=== PATIENT | female | born 1980 | race Caucasian/White ===

== ENCOUNTER 2019-02-25 02:03 | Emergency (ER) | payer SELFPAY ==
[~2019-02-25] VITALS: Ht 154.9 cm; Wt 79.5 kg
[~2019-02-25 02:03] MED LIST: CITA20TA28 PO; NAPR-56 PO
[2019-02-25] MEDS ORDERED: ondansetron/PF 4mg/2ml inj IV ONE (02:25)
[2019-02-25] MEDS ORDERED: normal saline 1000ML IV soln IVB ONE ×2 (02:25→03:20)
[2019-02-25 02:47] LABS: BASOPHILS % (AUTO) 0.2 % (0-1); EOSINOPHILS % (AUTO) 0.1 % (0-6); HEMATOCRIT 37.2 % (35.0-45.0); HEMOGLOBIN 12.5 g/dl (12.0-16.0); LYMPHOCYTES # (AUTO) 0.6 X10'3 (1.1-4.8); LYMPHOCYTES % (AUTO) 5.2 % (21-51); MEAN CORPUSCULAR HEMOGLOBIN 27.2 PG (27.0-31.0); MEAN CORPUSCULAR HGB CONC 33.6 g/dL (33.0-36.5); MEAN CORPUSCULAR VOLUME 80.9 FL (78-98); MONOCYTES # (AUTO) 0.6 X10'3 (0-0.9); MONOCYTES % (AUTO) 5.2 % (2-12); NEUTROPHILS # (AUTO) 9.7 X10'3 (1.8-7.7); NEUTROPHILS % (AUTO) 89.3 % (42-75); PLATELET COUNT 313 X10'3 (140-440); RED CELL DISTRIBUTION WIDTH 14.6 % (11.5-14.5); WHITE BLOOD COUNT 10.9 X10'3 (4.5-11.0)
[2019-02-25 03:11] LABS: ALANINE AMINOTRANSFERASE 112 U/L (12-78); ALBUMIN/GLOBULIN RATIO 0.8 (1.1-1.5); ALKALINE PHOSPHATASE 205 IU/L (46-116); ANION GAP 10 (8-16); ASPARTATE AMINO TRANSFERASE 203 U/L (10-37); BILIRUBIN,TOTAL 0.8 MG/DL (0.1-1.0); BLOOD UREA NITROGEN 15 MG/DL (7-18); BUN/CREATININE RATIO 14.9 (6.6-38.0); CALCIUM 8.5 MG/DL (8.5-10.1); CHLORIDE 104 MMOL/L (99-107); CREATININE 1.01 MG/DL (0.40-0.90); GLUCOSE 143 MG/DL (70-104); LIPASE 85 U/L (73-393); POTASSIUM 3.1 MMOL/L (3.5-5.1); SODIUM 137 MMOL/L (135-145); eGFR 62 ML/MIN
[2019-02-25] MEDS ORDERED: ONDA4TAB6 PO (04:37)
[2019-02-25 04:48] VITALS: BP 109/70
== END 2019-02-25 04:52 | disposition home or self-care (01) ==
LOC: ER 02:04
DX: R10.13 Epigastric pain (principal); K21.9 Gastro-esophageal reflux disease without esophagitis; G89.29 Other chronic pain; Z87.442 Personal history of urinary calculi; Z98.890 Other specified postprocedural states; Z98.51 Tubal ligation status; Z88.5 Allergy status to narcotic agent; Z88.6 Allergy status to analgesic agent; Z79.899 Other long term (current) drug therapy
CPT/HCPCS: 36415; 80053; 83690; 85025; 96361; 96374; 99283; J2405; J7030

== ENCOUNTER 2022-07-11 06:13 | Emergency (ER) | payer MEDICAID ==
[~2022-07-11] VITALS: Ht 154.9 cm; Wt 88.2 kg
[~2022-07-11 06:13] MED LIST changes: +ONDA4TAB6 PO
[2022-07-11 06:36] VITALS: BP 147/89
== END 2022-07-11 07:35 | disposition left against medical advice (07) ==
LOC: ER 06:14
DX: M25.519 Pain in unspecified shoulder (principal); Z53.21 Procedure and treatment not carried out due to patient leaving prior to being seen by health care provider

== ENCOUNTER 2022-09-04 13:43 | Emergency (ER) | payer OTHER, MEDICAID ==
[~2022-09-04] VITALS: Ht 157.5 cm; Wt 87.0 kg
[2022-09-04] MEDS ORDERED: HYDROcodone/acetaminophen 5mg/325mg tablet PO ONE (15:55)
[2022-09-04 16:14] LABS: D-DIMER 2.16 MG/L FEU (0-0.50)
[2022-09-04] MEDS ORDERED: normal saline 1000ML IV soln IVB ONE (16:35)
[2022-09-04 16:49] LABS: BASOPHILS # (AUTO) 0.1 X10'3 (0-0.2); BASOPHILS % (AUTO) 0.5 % (0-1); EOSINOPHILS # (AUTO) 0.7 X10'3 (0-0.9); EOSINOPHILS % (AUTO) 5.1 % (0-6); HEMATOCRIT 29.3 % (35.0-45.0); HEMOGLOBIN 9.4 g/dl (12.0-16.0); LYMPHOCYTES # (AUTO) 2.2 X10'3 (1.1-4.8); LYMPHOCYTES % (AUTO) 16.7 % (21-51); MEAN CORPUSCULAR HEMOGLOBIN 24.4 PG (27.0-31.0); MEAN CORPUSCULAR HGB CONC 32.2 g/dL (33.0-36.5); MEAN CORPUSCULAR VOLUME 75.8 FL (78-98); MEAN PLATELET VOLUME 8.2 FL (7.4-10.4); MONOCYTES # (AUTO) 0.6 X10'3 (0-0.9); MONOCYTES % (AUTO) 4.2 % (2-12); NEUTROPHILS # (AUTO) 9.7 X10'3 (1.8-7.7); NEUTROPHILS % (AUTO) 73.5 % (42-75); PLATELET COUNT 509 X10'3 (140-440); RED BLOOD COUNT 3.86 X10'6 (4.20-5.60); RED CELL DISTRIBUTION WIDTH 15.9 % (11.5-14.5); WHITE BLOOD COUNT 13.2 X10'3 (4.5-11.0)
[2022-09-04 17:01] LABS: ALANINE AMINOTRANSFERASE 19 U/L (12-78); ALBUMIN 2.7 G/DL (3.4-5.0); ALBUMIN/GLOBULIN RATIO 0.6 (1.1-1.5); ALKALINE PHOSPHATASE 135 IU/L (46-116); ANION GAP 11 (8-16); ASPARTATE AMINO TRANSFERASE 11 U/L (10-37); BILIRUBIN,TOTAL 0.1 MG/DL (0.1-1.0); BLOOD UREA NITROGEN 18 MG/DL (7-18); BUN/CREATININE RATIO 26.1 (6.6-38.0); CALCIUM 9.1 MG/DL (8.5-10.1); CHLORIDE 104 MMOL/L (99-107); CREATININE 0.69 MG/DL (0.40-0.90); GLUCOSE 117 MG/DL (70-104); POTASSIUM 3.8 MMOL/L (3.5-5.1); SODIUM 139 MMOL/L (135-145); TOTAL CARBON DIOXIDE 24.4 MMOL/L (24-32); eGFR > 90 ML/MIN
[2022-09-04 17:26] LABS: URINE HCG NEGATIVE (NEG)
[2022-09-04] MEDS ORDERED: iohexol 350MG/ML 100ml bottle IV ONE (17:44)
[2022-09-04 17:49] VITALS: BP 121/76
[2022-09-04] MEDS ORDERED: HYDR-3965 PO (18:39)
== END 2022-09-04 19:09 | disposition home or self-care (01) ==
LOC: ER 13:44
DX: M25.511 Pain in right shoulder (principal); M25.512 Pain in left shoulder; J84.10 Pulmonary fibrosis, unspecified; N20.0 Calculus of kidney; Q67.6 Pectus excavatum; K21.9 Gastro-esophageal reflux disease without esophagitis; R06.02 Shortness of breath; G89.29 Other chronic pain; F41.9 Anxiety disorder, unspecified; F32.A Depression, unspecified; Z87.442 Personal history of urinary calculi; Z98.51 Tubal ligation status; Z98.890 Other specified postprocedural states; Z90.89 Acquired absence of other organs; Z88.5 Allergy status to narcotic agent; Z88.8 Allergy status to other drugs, medicaments and biological substances; Z79.899 Other long term (current) drug therapy
CPT/HCPCS: 36415; 71275; 73030; 80053; 81025; 84484; 85025; 85379; 93005; 96360; 99285; J3490; J7030; Q9967

== ENCOUNTER 2023-07-14 13:01 | Emergency (ER) | payer OTHER, MEDICAID ==
[~2023-07-14] VITALS: Ht 154.9 cm; Wt 88.7 kg
[2023-07-14 13:21] LABS: BASOPHILS # (AUTO) 0.1 X10'3 (0-0.2); BASOPHILS % (AUTO) 0.5 % (0-1); EOSINOPHILS # (AUTO) 0.3 X10'3 (0-0.9); EOSINOPHILS % (AUTO) 1.9 % (0-6); HEMATOCRIT 36.7 % (35.0-45.0); LYMPHOCYTES # (AUTO) 1.6 X10'3 (1.1-4.8); LYMPHOCYTES % (AUTO) 11.7 % (21-51); MEAN CORPUSCULAR HGB CONC 32.7 g/dL (33.0-36.5); MEAN CORPUSCULAR VOLUME 79.4 FL (78-98); MEAN PLATELET VOLUME 8.4 FL (7.4-10.4); MONOCYTES # (AUTO) 0.5 X10'3 (0-0.9); MONOCYTES % (AUTO) 3.8 % (2-12); NEUTROPHILS # (AUTO) 11.1 X10'3 (1.8-7.7); NEUTROPHILS % (AUTO) 82.1 % (42-75); PLATELET COUNT 315 X10'3 (140-440); RED BLOOD COUNT 4.62 X10'6 (4.20-5.60); RED CELL DISTRIBUTION WIDTH 15.3 % (11.5-14.5); WHITE BLOOD COUNT 13.5 X10'3 (4.5-11.0)
[2023-07-14 14:45] LABS: ALANINE AMINOTRANSFERASE 36 U/L (12-78); ALBUMIN 3.3 G/DL (3.4-5.0); ALBUMIN/GLOBULIN RATIO 0.9 (1.1-1.5); ALKALINE PHOSPHATASE 141 IU/L (46-116); ANION GAP 6 (8-16); ASPARTATE AMINO TRANSFERASE 61 U/L (10-37); BILIRUBIN,TOTAL 0.4 MG/DL (0.1-1.0); BLOOD UREA NITROGEN 12 MG/DL (7-18); BUN/CREATININE RATIO 14.8 (10.0-20.0); CALCIUM 8.9 MG/DL (8.5-10.1); CHLORIDE 101 MMOL/L (99-107); CREATININE 0.81 MG/DL (0.40-0.90); GLUCOSE 169 MG/DL (70-104); POTASSIUM 4.1 MMOL/L (3.5-5.1); SODIUM 133 MMOL/L (135-145); TOTAL CARBON DIOXIDE 25.8 MMOL/L (24-32); eCRCL 68 ML/MIN; eGFR 78 ML/MIN
[2023-07-14 14:52] LABS: PRO BRAIN NATRIURETIC PEPTIDE < 30 PG/ML (0-125)
[2023-07-14 16:02] VITALS: TEMP 98.4
[2023-07-14] MEDS ORDERED: OMEP40CA21 PO (16:28)
[2023-07-14] MEDS ORDERED: mag hydrox/Alum hydrox/simeth 30ml oral suspension PO ONE (16:35)
[2023-07-14] MEDS ORDERED: LIDOcaine Viscous 15ml cup MM PRN (16:35)
[2023-07-14 16:58] VITALS: BP 144/90; PULSE 91; RESP 17; O2SAT 98
== END 2023-07-14 17:06 | disposition home or self-care (01) ==
LOC: ER 13:01
DX: R07.9 Chest pain, unspecified (principal); K21.9 Gastro-esophageal reflux disease without esophagitis; G89.29 Other chronic pain; M54.9 Dorsalgia, unspecified; F31.9 Bipolar disorder, unspecified; Z98.890 Other specified postprocedural states
CPT/HCPCS: 36415; 71045; 80053; 83880; 84484; 85025; 93005; 99285

== ENCOUNTER 2023-11-13 12:32 | Emergency (ER) | payer OTHER, MEDICAID ==
[~2023-11-13] VITALS: Ht 154.9 cm; Wt 88.2 kg
[2023-11-13 12:38] VITALS: BP 147/98; PULSE 87; RESP 18; TEMP 97.5; O2SAT 96
[2023-11-13 13:10] LABS: BASOPHILS # (AUTO) 0.1 X10'3 (0-0.2); BASOPHILS % (AUTO) 0.6 % (0-1); EOSINOPHILS # (AUTO) 0.2 X10'3 (0-0.9); EOSINOPHILS % (AUTO) 1.5 % (0-6); HEMATOCRIT 37.9 % (35.0-45.0); HEMOGLOBIN 12.6 g/dl (12.0-16.0); LYMPHOCYTES # (AUTO) 2.1 X10'3 (1.1-4.8); LYMPHOCYTES % (AUTO) 20.6 % (21-51); MEAN CORPUSCULAR HEMOGLOBIN 26.3 PG (27.0-31.0); MEAN CORPUSCULAR HGB CONC 33.2 g/dL (33.0-36.5); MEAN CORPUSCULAR VOLUME 79.1 FL (78-98); MEAN PLATELET VOLUME 9.1 FL (7.4-10.4); MONOCYTES # (AUTO) 0.5 X10'3 (0-0.9); MONOCYTES % (AUTO) 4.3 % (2-12); NEUTROPHILS # (AUTO) 7.6 X10'3 (1.8-7.7); PLATELET COUNT 374 X10'3 (140-440); RED BLOOD COUNT 4.79 X10'6 (4.20-5.60); RED CELL DISTRIBUTION WIDTH 14.8 % (11.5-14.5); WHITE BLOOD COUNT 10.4 X10'3 (4.5-11.0)
[2023-11-13 13:33] LABS: ALANINE AMINOTRANSFERASE 18 U/L (12-78); ALBUMIN 3.5 G/DL (3.4-5.0); ALBUMIN/GLOBULIN RATIO 0.9 (1.1-1.5); ALKALINE PHOSPHATASE 122 IU/L (46-116); ANION GAP 11 (8-16); ASPARTATE AMINO TRANSFERASE 11 U/L (10-37); BILIRUBIN,TOTAL 0.4 MG/DL (0.1-1.0); BLOOD UREA NITROGEN 9 MG/DL (7-18); BUN/CREATININE RATIO 12.3 (10.0-20.0); CALCIUM 8.7 MG/DL (8.5-10.1); CHLORIDE 105 MMOL/L (99-107); CREATININE 0.73 MG/DL (0.40-0.90); GLUCOSE 95 MG/DL (70-104); POTASSIUM 3.8 MMOL/L (3.5-5.1); PRO BRAIN NATRIURETIC PEPTIDE 83 PG/ML (0-125); SODIUM 141 MMOL/L (135-145); TOTAL CARBON DIOXIDE 25.1 MMOL/L (24-32); TOTAL PROTEIN 7.4 G/DL (6.4-8.2); eCRCL 76 ML/MIN; eGFR 87 ML/MIN
== END 2023-11-13 15:14 | disposition left against medical advice (07) ==
LOC: ER 12:33
DX: R07.9 Chest pain, unspecified (principal); R53.1 Weakness; G89.29 Other chronic pain; M54.9 Dorsalgia, unspecified; F31.9 Bipolar disorder, unspecified; Z88.6 Allergy status to analgesic agent; Z79.899 Other long term (current) drug therapy
CPT/HCPCS: 36415; 80053; 83880; 84484; 85025; 93005; 99284

== ENCOUNTER 2024-07-18 11:59 | Emergency (ER) | payer OTHER, MEDICAID ==
[~2024-07-18] VITALS: Ht 154.9 cm; Wt 87.3 kg
[2024-07-18 12:38] LABS: URINE HCG NEGATIVE (NEG)
[2024-07-18 12:50] LABS: BILIRUBIN,URINE NEGATIVE (Neg); CLARITY,URINE SLIGHTLY CLOUDY (Clear); COLOR,URINE YELLOW (Yellow); GLUCOSE, URINE NEGATIVE (Neg); KETONES,URINE NEGATIVE (Neg); LEUKOCYTE ESTERASE ,URINE NEGATIVE (Neg); NITRITES, URINE NEGATIVE (Neg); OCCULT BLOOD,URINE NEGATIVE (Neg); PROTEIN,URINE NEGATIVE (Neg); UROBILINOGEN,URINE 0.2 E.U/dL (0.2-1.0)
[2024-07-18 12:50] LABS: BASOPHILS # (AUTO) 0.1 X10'3 (0-0.2); BASOPHILS % (AUTO) 0.7 % (0-1); EOSINOPHILS # (AUTO) 0.2 X10'3 (0-0.9); EOSINOPHILS % (AUTO) 2.7 % (0-6); HEMATOCRIT 40.7 % (35.0-45.0); HEMOGLOBIN 13.4 g/dl (12.0-16.0); LYMPHOCYTES % (AUTO) 27.1 % (21-51); MEAN CORPUSCULAR HEMOGLOBIN 26.9 PG (27.0-31.0); MEAN CORPUSCULAR HGB CONC 32.9 g/dL (33.0-36.5); MEAN CORPUSCULAR VOLUME 81.8 FL (78-98); MEAN PLATELET VOLUME 8.4 FL (7.4-10.4); MONOCYTES # (AUTO) 0.4 X10'3 (0-0.9); MONOCYTES % (AUTO) 6.2 % (2-12); NEUTROPHILS # (AUTO) 4.6 X10'3 (1.8-7.7); NEUTROPHILS % (AUTO) 63.3 % (42-75); PLATELET COUNT 377 X10'3 (140-440); RED BLOOD COUNT 4.97 X10'6 (4.20-5.60); RED CELL DISTRIBUTION WIDTH 14.3 % (11.5-14.5); WHITE BLOOD COUNT 7.2 X10'3 (4.5-11.0)
[2024-07-18 12:55] LABS: UA COLLECTION TYPE CLN CATCH MIDSTREAM
[2024-07-18 12:57] LABS: MUCUS STRANDS FEW /LPF (Neg); SQUAMOUS EPITHELIAL CELL,UR MANY /LPF (FEW)
[2024-07-18 12:58] LABS: BACTERIA,URINE 2+ /HPF (Neg); WBC,URINE 0-4 /HPF (0-4)
[2024-07-18 13:12] VITALS: BP 157/99; PULSE 82; O2SAT 99
[2024-07-18 13:15] LABS: ALANINE AMINOTRANSFERASE 31 U/L (12-78); ALBUMIN 3.3 G/DL (3.4-5.0); ALBUMIN/GLOBULIN RATIO 0.9 (1.1-1.5); ALKALINE PHOSPHATASE 133 IU/L (46-116); ANION GAP 5 (8-16); ASPARTATE AMINO TRANSFERASE 15 U/L (10-37); BILIRUBIN,TOTAL 0.4 MG/DL (0.1-1.0); BLOOD UREA NITROGEN 11 MG/DL (7-18); BUN/CREATININE RATIO 15.9 (10.0-20.0); CALCIUM 8.6 MG/DL (8.5-10.1); CHLORIDE 104 MMOL/L (99-107); CREATININE 0.69 MG/DL (0.40-0.90); GLUCOSE 104 MG/DL (70-104); LIPASE 34 U/L (16-77); POTASSIUM 3.7 MMOL/L (3.5-5.1); SODIUM 136 MMOL/L (135-145); TOTAL CARBON DIOXIDE 27.5 MMOL/L (24-32); TOTAL PROTEIN 7.1 G/DL (6.4-8.2); eCRCL 79 ML/MIN; eGFR > 90 ML/MIN
[2024-07-18] MEDS ORDERED: pantoprazole 40 MG vial IV SCH (13:30)
[2024-07-18] MEDS: normal saline 1000ML IV soln IVB ONE (13:54)
[2024-07-18] MEDS: LIDOcaine 2% Viscous 15ml cup MM PRN (13:54)
[2024-07-18] MEDS: mag hydrox/Alum hydrox/simeth 30ml oral suspension PO ONE (13:58)
[2024-07-18] MEDS: pantoprazole 40 MG vial IV ONE (13:59)
[2024-07-18 14:23] VITALS: RESP 15
[2024-07-18 14:49] VITALS: TEMP 98.2
== END 2024-07-18 14:51 | disposition home or self-care (01) ==
LOC: ER 11:59
DX: R10.84 Generalized abdominal pain (principal); K21.9 Gastro-esophageal reflux disease without esophagitis; G89.29 Other chronic pain; M54.9 Dorsalgia, unspecified; Z88.8 Allergy status to other drugs, medicaments and biological substances; Z98.51 Tubal ligation status; Z98.890 Other specified postprocedural states; Z87.442 Personal history of urinary calculi; Z79.899 Other long term (current) drug therapy
CPT/HCPCS: 36415; 80053; 81001; 81025; 83690; 85025; 96365; 99284; J2470; J7030

== ENCOUNTER 2025-01-03 21:05 | Emergency (ER) | payer OTHER, MEDICAID ==
[~2025-01-03] VITALS: Ht 154.9 cm; Wt 85.9 kg
[~2025-01-03 21:05] MED LIST changes: +CITA-178 PO; -CITA20TA28 PO
[2025-01-03 21:40] LABS: BASOPHILS # (AUTO) 0.1 X10'3 (0-0.2); BASOPHILS % (AUTO) 0.7 % (0-1); EOSINOPHILS # (AUTO) 0.6 X10'3 (0-0.9); EOSINOPHILS % (AUTO) 5.4 % (0-6); HEMATOCRIT 41.9 % (35.0-45.0); HEMOGLOBIN 14.1 g/dl (12.0-16.0); LYMPHOCYTES # (AUTO) 2.1 X10'3 (1.1-4.8); LYMPHOCYTES % (AUTO) 18.3 % (21-51); MEAN CORPUSCULAR HEMOGLOBIN 27.7 PG (27.0-31.0); MEAN CORPUSCULAR HGB CONC 33.6 g/dL (33.0-36.5); MEAN CORPUSCULAR VOLUME 82.4 FL (78-98); MEAN PLATELET VOLUME 9.1 FL (7.4-10.4); MONOCYTES # (AUTO) 0.5 X10'3 (0-0.9); MONOCYTES % (AUTO) 4.2 % (2-12); NEUTROPHILS # (AUTO) 8.3 X10'3 (1.8-7.7); NEUTROPHILS % (AUTO) 71.4 % (42-75); PLATELET COUNT 386 X10'3 (140-440); RED BLOOD COUNT 5.09 X10'6 (4.20-5.60); RED CELL DISTRIBUTION WIDTH 14.6 % (11.5-14.5); WHITE BLOOD COUNT 11.7 X10'3 (4.5-11.0)
[2025-01-03 21:47] LABS: ALANINE AMINOTRANSFERASE 21 U/L (12-78); ALBUMIN 3.5 G/DL (3.4-5.0); ALBUMIN/GLOBULIN RATIO 0.9 (1.1-1.5); ALKALINE PHOSPHATASE 123 IU/L (46-116); ANION GAP 7 (8-16); ASPARTATE AMINO TRANSFERASE 13 U/L (10-37); BILIRUBIN,TOTAL 0.4 MG/DL (0.1-1.0); BLOOD UREA NITROGEN 12 MG/DL (7-18); BUN/CREATININE RATIO 15.2 (10.0-20.0); CALCIUM 8.6 MG/DL (8.5-10.1); CHLORIDE 105 MMOL/L (99-107); CREATININE 0.79 MG/DL (0.40-0.90); GLUCOSE 104 MG/DL (70-104); LIPASE 29 U/L (16-77); POTASSIUM 3.4 MMOL/L (3.5-5.1); SODIUM 137 MMOL/L (135-145); TOTAL CARBON DIOXIDE 24.7 MMOL/L (24-32); TOTAL PROTEIN 7.3 G/DL (6.4-8.2); eCRCL 69 ML/MIN; eGFR 79 ML/MIN
[2025-01-03 21:54] VITALS: BP 159/96; PULSE 97; RESP 18; TEMP 97.5; O2SAT 96
[2025-01-03 22:19] LABS: BILIRUBIN,URINE NEGATIVE (Neg); CLARITY,URINE CLEAR (Clear); COLOR,URINE YELLOW (Yellow); GLUCOSE, URINE NEGATIVE (Neg); KETONES,URINE TRACE mg/dl (Neg); LEUKOCYTE ESTERASE ,URINE NEGATIVE (Neg); NITRITES, URINE NEGATIVE (Neg); OCCULT BLOOD,URINE NEGATIVE (Neg); PROTEIN,URINE NEGATIVE (Neg); UROBILINOGEN,URINE 0.2 E.U/dL (0.2-1.0)
[2025-01-03 22:20] LABS: URINE HCG NEGATIVE (NEG)
[2025-01-03 22:52] LABS: UA COLLECTION TYPE CLN CATCH MIDSTREAM
== END 2025-01-04 00:55 | disposition left against medical advice (07) ==
LOC: ER 21:05
DX: R10.84 Generalized abdominal pain (principal); R19.7 Diarrhea, unspecified; Z53.21 Procedure and treatment not carried out due to patient leaving prior to being seen by health care provider; Z88.6 Allergy status to analgesic agent
CPT/HCPCS: 36415; 80053; 81003; 81025; 83690; 85025

== ENCOUNTER 2025-02-20 21:44 | Emergency (ER) | payer OTHER, MEDICAID ==
[~2025-02-20] VITALS: Ht 154.9 cm; Wt 81.3 kg
[2025-02-20 22:04] VITALS: BP 156/107; PULSE 119; O2SAT 98
[2025-02-20 23:22] LABS: BASOPHILS # (AUTO) 0.1 X10'3 (0-0.2); BASOPHILS % (AUTO) 0.6 % (0-1); EOSINOPHILS # (AUTO) 0.2 X10'3 (0-0.9); HEMATOCRIT 42.3 % (35.0-45.0); HEMOGLOBIN 13.9 g/dl (12.0-16.0); LYMPHOCYTES # (AUTO) 1.4 X10'3 (1.1-4.8); LYMPHOCYTES % (AUTO) 11.8 % (21-51); MEAN CORPUSCULAR HEMOGLOBIN 27.1 PG (27.0-31.0); MEAN CORPUSCULAR VOLUME 82.1 FL (78-98); MEAN PLATELET VOLUME 9.1 FL (7.4-10.4); MONOCYTES # (AUTO) 0.5 X10'3 (0-0.9); MONOCYTES % (AUTO) 3.8 % (2-12); NEUTROPHILS # (AUTO) 9.7 X10'3 (1.8-7.7); NEUTROPHILS % (AUTO) 81.8 % (42-75); PLATELET COUNT 308 X10'3 (140-440); RED BLOOD COUNT 5.15 X10'6 (4.20-5.60); RED CELL DISTRIBUTION WIDTH 13.8 % (11.5-14.5); WHITE BLOOD COUNT 11.9 X10'3 (4.5-11.0)
[2025-02-20 23:36] LABS: ALANINE AMINOTRANSFERASE 62 U/L (12-78); ALBUMIN 3.6 G/DL (3.4-5.0); ALBUMIN/GLOBULIN RATIO 0.9 (1.1-1.5); ALKALINE PHOSPHATASE 153 IU/L (46-116); ANION GAP 10 (8-16); ASPARTATE AMINO TRANSFERASE 100 U/L (10-37); BILIRUBIN,TOTAL 0.6 MG/DL (0.1-1.0); BLOOD UREA NITROGEN 10 MG/DL (7-18); BUN/CREATININE RATIO 10.9 (10.0-20.0); CALCIUM 8.8 MG/DL (8.5-10.1); CHLORIDE 106 MMOL/L (99-107); CREATININE 0.92 MG/DL (0.40-0.90); GLUCOSE 99 MG/DL (70-104); LIPASE 33 U/L (16-77); POTASSIUM 3.8 MMOL/L (3.5-5.1); SODIUM 142 MMOL/L (135-145); TOTAL CARBON DIOXIDE 26.3 MMOL/L (24-32); TOTAL PROTEIN 7.4 G/DL (6.4-8.2); eCRCL 60 ML/MIN; eGFR 67 ML/MIN
[2025-02-20 23:45] LABS: URINE HCG NEGATIVE (NEG)
[2025-02-20 23:46] LABS: BILIRUBIN,URINE NEGATIVE (Neg); CLARITY,URINE CLEAR (Clear); COLOR,URINE YELLOW (Yellow); GLUCOSE, URINE NEGATIVE (Neg); KETONES,URINE 40 mg/dl (Neg); LEUKOCYTE ESTERASE ,URINE NEGATIVE (Neg); NITRITES, URINE NEGATIVE (Neg); OCCULT BLOOD,URINE NEGATIVE (Neg); PH,URINE 7.5 (4.8-8.0); PROTEIN,URINE TRACE mg/dl (Neg); UROBILINOGEN,URINE 0.2 E.U/dL (0.2-1.0)
[2025-02-20 23:47] LABS: UA COLLECTION TYPE CLN CATCH MIDSTREAM
[2025-02-20 23:50] VITALS: RESP 18
[2025-02-20] MEDS: ondansetron 4mg rapidly disintigrating tab PO ONE (23:50)
[2025-02-20] MEDS: HYDROcodone/acetaminophen 5mg/325mg tablet PO ONE (23:50)
--- NOTE | 2025-02-20 23:50 | Physician Documentation ---
History of Present Illness ~ Chief Complaint: Abdominal Pain Stated Complaint: PINCHED FEELING IN CHEST/BACK Time Seen by MD: 23:06 Primary Medical Doctor: [facility] HPI Patient presents to the emergency room for evaluation of abdominal pain. Patient has had history of abdominal pain and she has had prior cholecystectomy for investigation into this however it has not helped. She does report that symptoms were once relieved by GI cocktail was however that has stopped working. She does take omeprazole daily. She states this feels similar to previous attacks however this one is more severe. Symptoms began approximately 11 hours ago Medication Reconciliation Allergies: Coded Allergies: aspirin (Unverified Adverse Reaction, Unknown, 02/20/25) HX LANDON SYNDROME PER PT, HAS TAKEN IT WITHOUT PROBLEMS Scheduled Citalopram Hydrobromide* (Celexa*), 20 MG PO DAILY, (Reported) Naproxen (Naproxen), 500 MG PO Q12H Ondansetron Hcl (Zofran), 1 TAB PO Q8H Past Medical History Past Medical History: GERD, Kidney Stones, Chronic Back Pain, Anxiety, Depression Past Surgical History: , tonsillectomy, tubal ligation Alcohol Use: None Drug Use: none Lives with: Spouse Lives In: Home Occupation: employed Review of Systems ROS All review of systems negative except as per HPI Physical Exam Vital Signs: Temperature: 97.0, Source: Temporal, Heart Rate: 119, Respiratory Rate: 24, BP: 156/107, Pulse Oximetry: 98, Weight: 81.350 Oxygen Flow Rate: 0 Physical Exam General: Patient is awake, alert, oriented x4 in moderate distress Head: Normocephalic and atraumatic. Eyes: Conjunctival normal. EOMI. PERRL. ENT: Mucous membranes moist. Neck: Supple, trachea is midline. Chest: Clear to auscultation bilaterally without rales, rhonchi, or wheezes. There is no accessory muscle use or retractions. Cardiac: Tachycardic and regular without murmurs, gallops, or rubs. Abd: Soft, nondistended, significant tenderness to palpation to epigastric area . Progress Results/Orders Results/Orders Completed Orders - EH REYNOSO MD Hcg, Ur Ql (02/20/25 22:19) Cbc/Diff (02/20/25 22:19) BMP (02/20/25 22:19) Lipase (02/20/25 22:19) CMP (02/20/25 22:19) Hydrocodone/Apap 5/325mg Tab ([place] 5/32 (02/20/25 23:25) Ondansetron Disint. Tablet (Zofran Odt T (02/20/25 23:25) Ua W/Microscopic, Cult If Ind (02/20/25 23:25) Ketorolac Trometh 15mg/Ml Vial (Toradol (02/20/25 23:50) Mag & Alum Hydrox/Simeth Susp (Maalox Or (02/20/25 23:50) Lidocaine 2% Viscous (Xylocaine 2% Visco (02/20/25 23:50) Dicyclomine Inj (Bentyl Inj) (02/20/25 23:50) Medications Received in ER Medications (Trade) Dose Ordered Sig/Darrius Route PRN Reason Start Time Stop Time Status Last Admin Dose Admin ([place] 5/325mg tablet) 1 tab ONCE ONCE PO 02/20/25 23:25 02/20/25 23:26 DC 02/20/25 23:50 1 TAB (Zofran ODT tablet) 4 mg ONCE ONCE PO 02/20/25 23:25 02/20/25 23:26 DC 02/20/25 23:50 4 MG (Toradol injection) 30 mg ONCE ONCE IM 02/20/25 23:50 02/20/25 23:51 DC 02/20/25 23:55 30 MG (Maalox oral suspension) 30 ml ONCE ONCE PO 02/20/25 23:50 02/20/25 23:51 DC 02/20/25 23:55 30 ML (Xylocaine 2% Viscous 15mL cup) 15 ml ONCE ONCE MM 02/20/25 23:50 02/20/25 23:51 DC 02/20/25 23:55 15 ML (Bentyl inj) 20 mg ONCE ONCE IM 02/20/25 23:50 02/20/25 23:51 DC 02/20/25 23:55 20 MG Vital Signs 02/20/25 02/20/25 22:04 23:50 Temp 97.0 Pulse 119 Resp 24 18 B/P (MAP) 156/107 Pulse Ox 98 O2 Flow Rate 0 Laboratory Tests Test 02/20/25 23:17 02/20/25 23:25 White Blood Count 11.9 H Red Blood Count 5.15 Hemoglobin 13.9 Hematocrit 42.3 Mean Corpuscular Volume 82.1 Mean Corpuscular Hemoglobin 27.1 Mean Corpuscular Hemoglobin Concent 33.0 Red Cell Distribution Width 13.8 Platelet Count 308 Mean Platelet Volume 9.1 Neutrophils (%) (Auto) 81.8 H Lymphocytes (%) (Auto) 11.8 L Monocytes (%) (Auto) 3.8 Eosinophils (%) (Auto) 2.0 Basophils (%) (Auto) 0.6 Neutrophils # (Auto) 9.7 H Lymphocytes # (Auto) 1.4 Monocytes # (Auto) 0.5 Eosinophils # (Auto) 0.2 Basophils # (Auto) 0.1 CBC Comment Sodium Level 142 Potassium Level 3.8 Chloride Level 106 Carbon Dioxide Level 26.3 Anion Gap 10 Blood Urea Nitrogen 10 Creatinine 0.92 H Estimated GFR/1.73 m2 67 BUN/Creatinine Ratio 10.9 Glucose Level 99 Calcium Level 8.8 Total Bilirubin 0.6 Aspartate Amino Transf (AST/SGOT) 100 H Alanine Aminotransferase (ALT/SGPT) 62 Alkaline Phosphatase 153 H Total Protein 7.4 Albumin 3.6 Globulin 3.8 Albumin/Globulin Ratio 0.9 L Lipase 33 Chemistry Comments Urine Specimen Description Cln catch midstream Urine Color Yellow Urine Clarity Clear Urine pH 7.5 Urine Specific [place] 1.020 Urine Protein Trace Urine Glucose (UA) Negative Urine Ketones 40 H Urine Occult Blood Negative Urine Nitrite Negative Urine Bilirubin Negative Urine Urobilinogen 0.2 Urine Leukocyte Esterase Negative Urine RBC 0-2 Urine WBC 0-4 Urine Squamous Epithelial Cells Moderate Urine Bacteria None seen Urine Culture Indicated Not ind Volume Urine Centrifuged 10 ml Urine HCG, Qualitative Negative Urine Comment Medical Decision Making Findings Patient presents to the emergency room for evaluation of abdominal pain. Diffe rentials include but are not limited to pancreatitis diverticulitis small-bowel obstruction gastritis cholecystitis therefore emergent labs ordered which were reassuring. Patient has responded to conservative management I do not feel she requires a CT scan. Unknown cause for patient's pain although it seems she did respond to GI cocktail and give her a course of Pepcid. ER precautions discussed pain completely resolved Departure Disposition: HOME / SELF CARE / HOMELESS Impression: Primary Impression: Abdominal pain Condition: Improved Discharge Instructions: Abdominal Pain (Nonspecific) Referrals: NO PRIMARY CARE PROVIDER (PCP) Prescriptions Famotidine (Pepcid) 20 Mg Tablet 1 TAB PO Q12H, #10 TAB 0 Refills Prov: EH REYNOSO MD 02/21/25 Education Educated: Patient Educated regarding: treatment, need for follow up Signature Scribe Signature: No scribe Attestation: The note accurately reflects work and decisions made by me.Eh Reynoso MD 02/21/25 00:41 EH REYNOSO MD Feb 20, 2025 23:50
[2025-02-20 23:51] LABS: RBC,URINE 0-2 /HPF (0-2); WBC,URINE 0-4 /HPF (0-4)
[2025-02-20 23:52] LABS: BACTERIA,URINE NONE SEEN /HPF (Neg); SQUAMOUS EPITHELIAL CELL,UR MODERATE /LPF (FEW)
[2025-02-20] MEDS: dicyclomine 10mg/ml 2ml ampule IM ONE (23:55)
[2025-02-20] MEDS: mag hydrox/Alum hydrox/simeth 30ml oral suspension PO ONE (23:55)
[2025-02-20] MEDS: LIDOcaine 2% Viscous 15ml cup MM ONE (23:55)
[2025-02-20] MEDS: ketorolac trometh 15mg/ml vial 15 MG/ML ML IM ONE (23:55)
[2025-02-21] MEDS ORDERED: FAMO-129 PO (00:40)
[2025-02-21 00:52] VITALS: TEMP 97
[2025-02-22] MEDS ORDERED: OMEP40CA21 PO (17:33)
[2025-02-22] MEDS ORDERED: DULO60CA65 PO (17:33)
[2025-02-22] MEDS ORDERED: TIRZ2.5P3 SUBCUT (17:33)
== END 2025-02-21 00:53 | disposition home or self-care (01) ==
LOC: ER 21:44
DX: R10.9 Unspecified abdominal pain (principal); F41.9 Anxiety disorder, unspecified; F32.A Depression, unspecified; Z88.6 Allergy status to analgesic agent; Z79.899 Other long term (current) drug therapy; Z90.49 Acquired absence of other specified parts of digestive tract; Z90.89 Acquired absence of other organs; Z98.51 Tubal ligation status
CPT/HCPCS: 36415; 80053; 81001; 81025; 83690; 85025; 96372; 99284; J0500; J1885

== ENCOUNTER 2025-02-22 10:22 | Inpatient (IN) | payer MEDICAID ==
[~2025-02-22] VITALS: Ht 154.9 cm; Wt 80.1 kg
[~2025-02-22 10:22] MED LIST changes: +FAMO-129 PO
--- NOTE | 2025-02-22 10:33 | ELECTROCARDIOGRAPH REPORT ---
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 Daysi Floyd Measurements Intervals [place] Rate: 132 P: 61 ID: [id number] QRS: 76 QRSD: 80 T: -44 QT: 312 QTc: 463 Interpretive Statements Sinus tachycardia Multiform ventricular premature complexes Aberrant complex LAE, consider biatrial enlargement Nonspecific repol abnormality, diffuse leads Electronically Signed On 02-22-2025 11:30:[address] Daysi Floyd Please click the below link to view image of tracing.
--- NOTE | 2025-02-22 12:36 | Physician Documentation ---
History of Present Illness ~ Chief Complaint: Numbness Stated Complaint: TONGUE NUMBNESS Time Seen by MD: 12:35 OK to notify your PCP?: Yes Primary Medical Doctor: Roque arambula Source: patient Mode of Arrival: Ambulatory Exam Limitations: no limitations HPI 44-year-old female with past medical history of hyperlipidemia, hypertension, peripheral neuropathy, esophageal hernia, peptic ulcer disease fibromyalgia, nephrolithiasis, sinus tachycardia presented to the ED with chief complaint of a tingling sensation of lips and tongue for 45 minute duration at 10 a.m today while [place] park on when she suddenly felt weak and dizzy on felt a tingling sensation. She is feeling exhausted & felt short of breath like as if she is running in a marathon. She do reports occasional skipped beats& palpitations. reports could not able to sleep in the last night. She endorses recent increase in dose of zep bound(2.5 mg to 5 mg a day). She reports generalized weakness of bilateral legs & she attributes weakness to her peripheral neuropathy . She denied chest pain, shortness of breath, swelling of legs, fever, diaphoresis, deviation of angle of mouth, slurring of speech, loss of consciousness, seizures, syncope, blurring of vision, vertigo, tinnitus. She tried to do stress test eight months Back with Dr. Barraza & procedure was abanded in the middle because patient heart rate went up to 168 from 120s & she could not able to complete the stress test. Medication Reconciliation Allergies: Coded Allergies: aspirin (Unverified Adverse Reaction, Unknown, 02/20/25) HX LANDON SYNDROME PER PT, HAS TAKEN IT WITHOUT PROBLEMS Scheduled Aspirin (Aspirin), 1 TAB PO DAILY Duloxetine HCl (Duloxetine HCl), 1 CAP PO QAM, (Reported) Famotidine (Pepcid), 1 TAB PO Q12H Omeprazole (Prilosec), 1 CAP PO DAILY, (Reported) Ondansetron Hcl (Zofran), 1 TAB PO Q8H Discontinued Medications Citalopram Hydrobromide* (Celexa*), 20 MG PO DAILY, (Reported) Discontinued Reason: completed med therapy Naproxen (Naproxen), 500 MG PO Q12H Discontinued Reason: patient no longer taking Tirzepatide (Zepbound), 2.5 MG SUBCUT Q7D, (Reported) Past Medical History Past Medical History: Peripheral Neuropathy, Arrhythmia, GERD, Peptic Ulcer Disease, Kidney Stones, Chronic Back Pain, Anxiety, Depression Other Past Medical History: Sinus tachycardia Esophageal hernia Fibromyalgia Past Surgical History: , tonsillectomy, tubal ligation Smoking Status: Never smoker Alcohol Use: None Drug Use: none Lives with: Spouse Lives In: Home Occupation: employed Review of Systems All Other Systems at this time: Reviewed and Negative ROS Reviewed and full on negative except positive pertinent as in HPI Physical Exam Vital Signs: RN Vital Signs have been reviewed: Yes, Temperature: 98.7, Source: Oral, Heart Rate: 96, Respiratory Rate: 22, BP: 154/105, Pulse Oximetry: 96, Weight: 80.100 Oxygen Flow Rate: 0 General Appearance General: Patient is awake, alert, oriented x4 . Not in distress. No JVD. No carotid upstroke. Head: Normocephalic and atraumatic. Eyes: Conjunctival normal. EOMI. PERRL. ENT: Mucous membranes moist. Neck: Supple, trachea is midline. Chest: Clear to auscultation bilaterally without rales, rhonchi, or wheezes. There is no accessory muscle use or retractions. Cardiac: Tachycardic and regular without murmurs, gallops, or rubs. Abd: Soft, nondistended, no tenderness. No guarding, no rigidity Neurological system: Tone is normal. 5/5 in bilateral upper limbs. 5/5 in bilateral leg flexion & 4- out of five in bilateral leg extension. Reflexes are intact. Decreased sensory sensation in the bilateral leg. t-PA t-PA given w/in 2hrs?: No Reason t-PA not Given: Medical Contraindication Progress Results/Orders Reviewed/noted all lab results: Yes Results/Orders Orders - NINO CRUMP MD Electrocardiogram (02/22/25 10:28) Completed Orders - NINO CRUMP MD Electrocardiogram (02/22/25 10:28) [place] (02/22/25 15:00) Vital Signs 02/22/25 02/22/25 02/22/25 02/22/25 10: 11:42 11:47 13:40 Temp 98.7 98.7 Pulse 127 96 87 Resp 16 19 22 16 B/P (MAP) 156/105 154/105 (121) 161/96 (117) Pulse Ox 96 96 98 O2 Flow Rate 0 0 0 02/22/25 14:15 Temp 98.7 Pulse 80 Resp 16 B/P (MAP) 138/85 (102) Pulse Ox 98 O2 Flow Rate 0 Laboratory Tests Test 02/22/25 10:35 02/22/25 12:00 02/22/25 15:10 White Blood Count 11.6 H Red Blood Count 5.23 Hemoglobin 14.8 Hematocrit 43.6 Mean Corpuscular Volume 83.4 Mean Corpuscular Hemoglobin 28.3 Mean Corpuscular Hemoglobin Concent 33.9 Red Cell Distribution Width 14.0 Platelet Count 356 Mean Platelet Volume 10.1 Neutrophils (%) (Auto) 74.2 Lymphocytes (%) (Auto) 16.0 L Monocytes (%) (Auto) 3.4 Eosinophils (%) (Auto) 6.3 H Basophils (%) (Auto) 0.1 Neutrophils # (Auto) 8.6 H Lymphocytes # (Auto) 1.9 Monocytes # (Auto) 0.4 Eosinophils # (Auto) 0.7 Basophils # (Auto) 0.0 CBC Comment Sodium Level 142 Potassium Level 4.0 Chloride Level 105 Carbon Dioxide Level 24.0 Anion Gap 13 Blood Urea Nitrogen 14 Creatinine 0.98 H Estimated GFR/1.73 m2 62 BUN/Creatinine Ratio 14.3 Glucose Level 102 Hemoglobin A1c 5.2 Calcium Level 8.9 Magnesium Level 2.3 Total Bilirubin 0.8 Aspartate Amino Transf (AST/SGOT) 181 H Alanine Aminotransferase (ALT/SGPT) 333 H Alkaline Phosphatase 267 H Total Creatine Kinase 84 Total Protein 7.7 Albumin 3.8 Globulin 3.9 Albumin/Globulin Ratio 1.0 L Procalcitonin 0.13 Thyroid Stimulating Hormone (TSH) 1.92 Chemistry Comments Urine Specimen Description Non-specified Urine Color Yellow Urine Clarity Slightly cloudy Urine pH 6.0 Urine Specific [place] 1.025 Urine Protein Trace Urine Glucose (UA) Negative Urine Ketones 40 H Urine Occult Blood Negative Urine Nitrite Negative Urine Bilirubin Small Urine Urobilinogen 0.2 Urine Leukocyte Esterase Negative Urine RBC 0-2 Urine WBC 0-4 Urine Squamous Epithelial Cells Many Urine Bacteria 3+ Urine Mucus Few Urine Culture Indicated Not ind Volume Urine Centrifuged 10 ml Urine Comment Urine Opiates Screen Positive H Urine Methadone Screen Negative Urine Fentanyl Screen Negative Urine Barbiturates Screen Negative Urine Phencyclidine Screen Negative Urine Amphetamines Screen Negative Urine Benzodiazepines Screen Negative Urine Cocaine Screen Negative Urine Cannabinoids Screen Negative Drug Screen Comment Lactic Acid Level 1.2 Hepatitis C Virus (Real-Time PCR) EKG/XRAY/CT/US/VASC/MRI EKG : Additional Comment [facility] Test Date: 2025-02-22 Test Time: 10:30:13 Pat Name: DERIK NI Department: [facility]- Patient ID: [facility]-[id number] Room: 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 Nino Crump Measurements Intervals [place] Rate: 132 P: 61 MN: 111 QRS: 76 QRSD: 80 T: -44 QT: 312 QTc: 463 Interpretive Statements Sinus tachycardia Multiform ventricular premature complexes Aberrant complex LAE, consider biatrial enlargement Nonspecific repol abnormality, diffuse leads Electronically Signed On 02-22-2025 11:30:[address] Nino Crump Please click the below link to view image of tracing. EKG Date and Time:02/22/25 1030 Electronically Signed by: NINO CRUMP MD Date and Time: 02/22/25 1130 Chest X-Ray : Additional Comments EXAM: DI CHEST,SINGLE VIEW HISTORY: TIA, chest pain COMPARISON: DI CHEST,SINGLE VIEW on DOS: 07/14/23 TECHNIQUE: Portable AP view of the chest was performed. FINDINGS: No pneumothorax, consolidative infiltrates, or pulmonary edema. There is mild elevation of the right hemidiaphragm. The heart is not enlarged. There is mild thoracic dextroscoliosis. IMPRESSION: No acute intrathoracic process. Electronically Signed by:BANDAR KRAUS MD Date & Time: 02/22/[address] : Impression Procedure: [facility] Study Date and Requested Time: 02/22/2025 01:07 PM History: TIA Comparison: None Dose: CTDI: 54.4 mGy DLP: 944.96 mGycm Technique: Multiplanar images obtained through the brain without intravenous contrast. Findings: Normal brain volume and formation. No hemorrhages, masses, mass effect, midline shift, herniation or cytotoxic edema following a large vascular territory. No intra-axial or extra-axial fluid collections. No evidence of hydrocephalus. The basal cisterns are patent. The pituitary gland, sella and parasellar regions are unremarkable. The cerebellar tonsils are in normal position. The cerebellum is unremarkable. The orbits and globes are unremarkable. The paranasal sinuses and mastoids are clear. There are no worrisome calvarial lesions. Impression: No evidence of acute intracranial abnormality. Electronically Signed by:GERRI HERNANDEZ DO Date & Time: 02/22/25 8247 Medical Decision Making Findings Heat exposure versus TIA Sinus tachycardia EKG showing sinus tachycardia, multiple VPCs, right & left atrial enlargement. Chest x-ray normal. CT head showed no acute intracranial abnormality. CBC-Mild elevation of WBC count CMP -serum creatinine U tox is positive for opioids but she received [place] 10 -days Back Ordered lactic acid, procalcitonin, CPK levels Received 500 mL of IV normal saline bolus Needs the cardiology workup for tachycardia. Transaminitis 4 times elevation of the AST and ALT Ordered hepatitis-B and C viral panel. Differential Dx:Considerations: Include: CVA, TIA Departure Disposition: ADMITTED INPATIENT Admitted to Inpatient Unit: to hospitalist Admission Level of Care: Neuro with Tele Impression: Primary Impression: Numbness of face Additional Impressions: Heat exposure Qualified Codes: T67.9XXA - Effect of heat and light, unspecified, initial encounter TIA (transient ischemic attack) Condition: Stable Referrals: NO PRIMARY CARE PROVIDER (PCP) Prescriptions Aspirin (Aspirin) 81 Mg Tab.chew 1 TAB PO DAILY, #30 TAB.CHEW Prov: GAYLE PEREZ RES 02/23/25 Additional Comment Additional Comment Patient was seen by the resident for which we discussed of the case I agree with his management and plan. Signature Scribe Signature: The note accurately reflects work and decisions made by me.Sukumar Gutierrez - Resident 02/22/25 15:04 Scribed for Sukumar Gutierrez Res by Honey Mora - Scribe . 02/22/25 16:05 (Progress) Attestation: The note accurately reflects work and decisions made by me.Nino Crump MD 02/22/25 12:36 NINO CRUMP MD Feb 22, 2025 12:36 SUKUMAR GUTIERREZ, RES Feb 22, 2025 14:35 HONEY MORA Feb 22, 2025 16:05
[2025-02-22 13:07] LABS: BASOPHILS % (AUTO) 0.1 % (0-1); EOSINOPHILS # (AUTO) 0.7 X10'3 (0-0.9); EOSINOPHILS % (AUTO) 6.3 % (0-6); HEMATOCRIT 43.6 % (35.0-45.0); HEMOGLOBIN 14.8 g/dl (12.0-16.0); LYMPHOCYTES # (AUTO) 1.9 X10'3 (1.1-4.8); MEAN CORPUSCULAR HEMOGLOBIN 28.3 PG (27.0-31.0); MEAN CORPUSCULAR HGB CONC 33.9 g/dL (33.0-36.5); MEAN CORPUSCULAR VOLUME 83.4 FL (78-98); MEAN PLATELET VOLUME 10.1 FL (7.4-10.4); MONOCYTES # (AUTO) 0.4 X10'3 (0-0.9); MONOCYTES % (AUTO) 3.4 % (2-12); NEUTROPHILS # (AUTO) 8.6 X10'3 (1.8-7.7); NEUTROPHILS % (AUTO) 74.2 % (42-75); PLATELET COUNT 356 X10'3 (140-440); RED BLOOD COUNT 5.23 X10'6 (4.20-5.60); WHITE BLOOD COUNT 11.6 X10'3 (4.5-11.0)
[2025-02-22 13:18] LABS: BILIRUBIN,URINE SMALL (Neg); CLARITY,URINE SLIGHTLY CLOUDY (Clear); COLOR,URINE YELLOW (Yellow); GLUCOSE, URINE NEGATIVE (Neg); KETONES,URINE 40 mg/dl (Neg); LEUKOCYTE ESTERASE ,URINE NEGATIVE (Neg); NITRITES, URINE NEGATIVE (Neg); OCCULT BLOOD,URINE NEGATIVE (Neg); PROTEIN,URINE TRACE mg/dl (Neg); UROBILINOGEN,URINE 0.2 E.U/dL (0.2-1.0)
[2025-02-22 13:18] LABS: ALANINE AMINOTRANSFERASE 333 U/L (12-78); ALBUMIN 3.8 G/DL (3.4-5.0); ALKALINE PHOSPHATASE 267 IU/L (46-116); ANION GAP 13 (8-16); ASPARTATE AMINO TRANSFERASE 181 U/L (10-37); BILIRUBIN,TOTAL 0.8 MG/DL (0.1-1.0); BLOOD UREA NITROGEN 14 MG/DL (7-18); BUN/CREATININE RATIO 14.3 (10.0-20.0); CALCIUM 8.9 MG/DL (8.5-10.1); CHLORIDE 105 MMOL/L (99-107); CREATININE 0.98 MG/DL (0.40-0.90); GLUCOSE 102 MG/DL (70-104); SODIUM 142 MMOL/L (135-145); TOTAL PROTEIN 7.7 G/DL (6.4-8.2); eCRCL 56 ML/MIN; eGFR 62 ML/MIN
[2025-02-22 13:23] LABS: BACTERIA,URINE 3+ /HPF (Neg); MUCUS STRANDS FEW /LPF (Neg); SQUAMOUS EPITHELIAL CELL,UR MANY /LPF (FEW); UA COLLECTION TYPE NON-SPECIFIED
[2025-02-22 13:24] LABS: MAGNESIUM 2.3 MG/DL (1.5-2.4)
[2025-02-22 13:24] LABS: RBC,URINE 0-2 /HPF (0-2); WBC,URINE 0-4 /HPF (0-4)
[2025-02-22 13:33] LABS: URINE AMPHETAMINE SCREEN NEGATIVE (Neg); URINE BARBITUATE SCREEN NEGATIVE (Neg); URINE BENZODIAZEPINES SCREEN NEGATIVE (Neg); URINE CANNABINOID SCREEN NEGATIVE (Neg); URINE COCAINE SCREEN NEGATIVE (Neg); URINE METHADONE SCREEN NEGATIVE (Neg); URINE OPIATE SCREEN POSITIVE (Neg); URINE PHENCYCLIDINE SCREEN NEGATIVE (Neg)
--- NOTE | 2025-02-22 13:35 | RADIOLOGY REPORT ---
EXAM: DI CHEST,SINGLE VIEW HISTORY: TIA, chest pain COMPARISON: DI CHEST,SINGLE VIEW on DOS: 07/14/23 TECHNIQUE: Portable AP view of the chest was performed. FINDINGS: No pneumothorax, consolidative infiltrates, or pulmonary edema. There is mild elevation of the right hemidiaphragm. The heart is not enlarged. There is mild thoracic dextroscoliosis. IMPRESSION: No acute intrathoracic process.
[2025-02-22] MEDS: normal saline 500ml IV soln 500 ML IV ONE (13:36)
--- NOTE | 2025-02-22 13:41 | RADIOLOGY REPORT ---
Procedure: [facility] Study Date and Requested Time: 02/22/2025 01:07 PM History: TIA Comparison: None Dose: CTDI: 54.4 mGy DLP: 944.96 mGycm Technique: Multiplanar images obtained through the brain without intravenous contrast. Findings: Normal brain volume and formation. No hemorrhages, masses, mass effect, midline shift, herniation or cytotoxic edema following a large v ascular territory. No intra-axial or extra-axial fluid collections. No evidence of hydrocephalus. The basal cisterns are patent. The pituitary gland, sella and parasellar regions are unremarkable. The cerebellar tonsils are in nor mal position. The cerebellum is unremarkable. The orbits and globes are unremarkable. The paranasal sinuses and mastoids are clear. There are no wo rrisome calvarial lesions. Impression: No evidence of acute intracranial abnormality.
[2025-02-22 13:47] LABS: THYROID STIMULATING HORMONE 1.92 ulU/ml (0.34-4.50)
[2025-02-22 15:22] LABS: CREATINE KINASE 84 U/L (26-192)
[2025-02-22] MEDS ORDERED: ondansetron/PF 4mg/2ml inj IV PRN (15:35)
[2025-02-22] MEDS ORDERED: magnesium sulf-water 4G/100mL 100 ML IV PRN (15:35)
[2025-02-22] MEDS ORDERED: potassium Cl 40MEQ/1/2NS 520ml 520 ML IV PRN (15:35)
[2025-02-22] MEDS ORDERED: mag hydrox/Alum hydrox/simeth 30ml oral suspension PO PRN (15:35)
[2025-02-22] MEDS ORDERED: magnesium sulf-water 2g/50mL 50 ML IV PRN (15:35)
[2025-02-22] MEDS ORDERED: magnesium Cl slow-release 64mg tablet PO PRN (15:35)
[2025-02-22] MEDS ORDERED: acetaminophen 325mg tablet PO PRN ×2 (15:35)
[2025-02-22] MEDS ORDERED: potassium Cl 20 mEq SR tablet PO PRN (15:35)
[2025-02-22] MEDS: normal saline 1000ml 1,000 ML IV SCH (16:02)
[2025-02-22 16:09] LABS: HEMOGLOBIN A1C 5.2 % (4.5-6.2)
--- NOTE | 2025-02-22 17:19 | HISTORY AND PHYSICAL-Residence ---
History & Physical Providers to CC Resident Creating Document: BRIGITTE PEREZ DALLIN ~ History of Present Illness Primary Medical Doctor: Wilkes Gutierrez [place] Reason for Admit\Complaint: possible TIA History of Present Illness 44-year-old female with history of fibromyalgia, sinus tachycardia, neuropathy, gastritis presented to the ED with chief complaints of numbness of the lips and tip of the tongue this morning which lasted for around 40 minutes. She currently does not have any numbness or tingling. Denies significant chest pains, diaphoresis, fevers/chills, nasal congestion, expectoration, palpitations. No prior episodes in the past. She has history of sinus tachycardia which is being evaluated by Dr. Dunlap her partner cco, she had a heart monitor for three days six months ago uneventful. She was getting a stress test done but she could not completed. She has an appointment with Dr. Barraza next month. Denies smoking or drinking alcohol. No drug use, was given [place] shows when she was here in the ED couple of days ago and hence a UTox positive for opiates. Her liver enzymes are elevated. She is currently taking tries appetite for weight loss since the past four months, dose increased from 2.5252 days ago. She has history of chronic on and off headaches, recently intensity of her headaches has increased. She complains of weakness of bilateral lower extremities which is also chronic since 2021. Discussed advanced care directives and she wishes to be a full code. Of note: She was here at [facility] two days ago for complaints of epigastric pain, was given two GI cocktail and her symptoms resolved. Around a year ago she had upper and lower GI workup done and was found to have an ulcer and hernia. Allergies: Coded Allergies: aspirin (Unverified Adverse Reaction, Unknown, 02/20/25) HX [place] SYNDROME PER PT, HAS TAKEN IT WITHOUT PROBLEMS Home Medications Home Medications Active Pepcid (Famotidine) 20 Mg Tablet 1 Tab PO Q12H Zofran (Ondansetron Hcl) 4 Mg Tablet 1 Tab PO Q8H 10 Days Naproxen 500 Mg Tablet 500 Mg PO Q12H Reported Celexa* (Citalopram Hydrobromide) 20 Mg Tablet 20 Mg PO DAILY Past Medical History Past Medical History Fibromyalgia Neuropathy Sinus tach Kidney stones Irritable bowel syndrome Past Surgical History Surgical History Comment Cholecystectomy section x3 Tonsillectomy Hysterectomy secondary to endometriosis Right breast tumor resection which was benign Past Social History Smoking: Non-Smoker Alcohol Use: None Drug Use: None Lives with: Spouse Lives In: Home Occupation: employed ROS All Other Systems: Reviewed and Negative ROS Reviewed in full. All negative except for pertinent positive HPI. Exam Vitals: Vital Signs Date Time Temp Pulse Resp B/P (MAP) Pulse Ox O2 Delivery O2 Flow Rate FiO2 02/22/25 13:40 98.7 87 16 161/96 (117) 98 0 General: General: Awake and Alert, no acute distress. HEENT: Conjunctiva pink, Sclera clear, Mucus Membranes moist. Neck: Supple without masses and tenderness. Resp: Unlabored. Equal breath sounds bilaterally. Heart: Regular rhythm, normal S1 and S2, no rub, murmur or gallop. Abdomen: Soft and non tender no organomegaly. Normal bowel sounds x4 quadrant normoactive. No guarding or rigidity. Extremities: Normal ROM, no swelling, nontender. No cyanosis,clubbing or edema. 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 Skin: Warm and Dry. Diagnostic Data Last Recorded Lab Results: 02/22/25 1035 02/22/25 1035 Advance Care Planning Advanced Care plannin - 30 Minutes Additional Plan 44-year-old female with history of fibromyalgia, sinus tachycardia, neuropathy, gastritis presented to the ED with chief complaints of numbness of the lips and tip of the tongue this morning which lasted for around 40 minutes. Possible TIA Rule out CVA Blood pressure 143/100, heart rate [address] head negative for acute intracranial abnormalities CXR clear Was given 500 L fluid bolus in the ED Continue IV fluids at 100 mL/hour Continue telemetry monitoring to look for arrhythmias Follow up with the MRI head and echo Transaminitis Urine toxicology positive for opioids, she was given [place] couple of days ago when she was here in the ED Follow up with hepatitis panel and abdominal ultrasound Held Zepbound in view of possible medication induced transaminitis History of Sinus tachycardia, being evaluated by Dr. Barraza Six months ago had heart monitor done for three days, uneventful Had stress test done in the past but had to stop in between as she was not able to completed Was started on blood pressure medication but was taken off by her primary care, as they were working on weight loss and wanted to reassess blood pressure post weight loss On Zepbound for weight loss We will start low-dose beta mallory metoprolol succinate 25 Obesity On Zepbound for weight loss since the past four months, dose increased from 2.5 to 5 two days ago Gastritis History of esophageal ulcer On omeprazole Awaiting med rec Code Status: Full code DVT prophylaxis: Lovenox Analgesia/sedation none Line/tube: PIV GI prophylaxis: Protonix Nutrition: Regular diet Prognosis: Guarded Disposition: Continue medical management. Brigitte Perez MD. IM Resident PGY-2 Date of Service: Feb 22, 2025 Billing Provider: JESSENIA YAO MD Common Visit Codes: 85380-[id number] INP/OBS CARE (HIGH) Secondary Visit Codes: [id number] CARE PLAN 30 MINUTES BRIGITTE PEREZ, RES Feb 22, 2025 17:19 JESSENIA YAO MD Feb 24, 2025 06:50
[2025-02-22] MEDS ORDERED: DULO60CA65 PO (17:33)
[2025-02-22] MEDS ORDERED: TIRZ2.5P3 SUBCUT (17:33)
[2025-02-22] MEDS ORDERED: OMEP40CA21 PO (17:33)
[2025-02-22 17:55] LABS: BILIRUBIN,URINE NEGATIVE (Neg); CLARITY,URINE SLIGHTLY CLOUDY (Clear); COLOR,URINE YELLOW (Yellow); GLUCOSE, URINE NEGATIVE (Neg); KETONES,URINE >=80 mg/dl (Neg); LEUKOCYTE ESTERASE ,URINE NEGATIVE (Neg); NITRITES, URINE NEGATIVE (Neg); OCCULT BLOOD,URINE NEGATIVE (Neg); PROTEIN,URINE NEGATIVE (Neg); UROBILINOGEN,URINE 0.2 E.U/dL (0.2-1.0)
[2025-02-22 17:56] LABS: UA COLLECTION TYPE CLN CATCH MIDSTREAM
[2025-02-22 17:59] LABS: SQUAMOUS EPITHELIAL CELL,UR MANY /LPF (FEW)
[2025-02-22 18:00] LABS: BACTERIA,URINE 1+ /HPF (Neg); WBC,URINE 0-4 /HPF (0-4)
[2025-02-22] MEDS: metoprolol succinate 25mg (24-HOUR) SR. Tablet PO SCH (18:15)
[2025-02-22] MEDS: K and/or MAG REPLACEMENT MC SCH (20:00)
--- NOTE | 2025-02-22 20:37 | [facility] CONSULT REPORT ---
[facility] Procedure Note [facility] Procedure Note Consult [facility] [place] [facility] Note # Demographics Consult Type: General Neurology Patient Location: Emergency Room First Name: DERIK Last Name: LAST Gender: Male Facility: [facility] Time of Initial Page (): 02/22/2025 20:29 Time of Return Call (): 02/22/2025 20:29 # HPI History: 44yof with HTN, fibromyalgia, IBS with bilateral numbness and tingling in her lips. Lasted about 40 minutes and now resolved. # Scores Time of exam and NIHSS (): 02/22/2025 20:33 Level of Consciousness 1a: [0] = Alert; keenly responsive LOC Questions 1b: [0] = Answers both questions correctly LOC Commands 1c: [0] = Performs both tasks correctly Best Gaze 2: [0] = Normal Visual 3: [0] = No visual loss Facial Palsy 4: [0] = Normal symmetrical movements Motor Arm Left 5a: [0] = No drift Motor Arm Right 5b: [0] = No drift Motor Leg Left 6a: [0] = No drift Motor Leg Right 6b: [0] = No drift Limb Ataxia 7: [0] = Absent Sensory 8: [0] = Normal Best Language 9: [0] = No aphasia Dysarthria 10: [0] = Normal Extinction and Inattention 11: [0] = No abnormality NIHSS Total: 0 # Assessment Impression: Symptoms not classic for TIA or stroke, pt currently admitted and pending MRI. If MRI normal, would not continue TIA treatment # Plan Imaging: (urgency: STAT): - CT Head without contrast Imaging: (urgency: routine): - MRI Brain without contrast Other: - If patient has any neurological deterioration please call me back immediately - would not pursue stroke work-up if MRI is negative # Logistics Attestation of consult completion: The patient is located at: [facility]. Facility staff participated in the visit. I performed this telemedicine visit from my offsite office utilizing interactive 2 way audio and visual telecommunication technology. Total time spent in telemedicine encounter: I spent 23 minutes reviewing clinical data and/or imaging, obtaining history, examining the patient, communicating with the onsite care team, and in preparation of this report. # Demographics First Name: DERIK Last Name: LAST Facility: [facility] Consult Order placed for: Yes JOHN OBRIEN MD Feb 22, 2025 20:37
[2025-02-22] MEDS: enoxaparin 30mg/0.3ml syringe SQ SCH (20:45)
[2025-02-22] MEDS: LORazepam 2 mg/ml vial IV ONE (22:20)
[2025-02-23] VITALS (8 sets, daily range): BP systolic 125–143; BP diastolic 79–101; PULSE 84–119; RESP 15–18; TEMP 97.7–98.3; O2SAT 95–100
--- NOTE | 2025-02-23 01:23 | RADIOLOGY REPORT ---
PROCEDURE: MR MRI HEAD INDICATION: tia rule out acute cva EXAM DATE: 02/22/2025 10:34 PM COMPARISON: CT CT HEAD on DOS: 02/22/25 TECHNIQUE: MRI of the brain without intravenous contrast. FINDINGS: Diffusion weighted images of the brain demonstrate no evidence of acute infarction. There is no evidence of acute intracranial hemorrhage, extra-axial collection, mass effect, midline s hift, herniation or hydrocephalus. The ventricles, sulci and cisterns appear age appropriate. The signal intensities of the brain parenchyma are within normal limits. There are no signal abnormalities on the susceptibility weighted sequences. The major vascular flow voids are present. The visualized paranasal sinuses and mastoid air cells are clear. The surrounding soft tissues and o sseous structures are unremarkable. IMPRESSION: 1. No evidence of acute infarction, intracranial hemorrhage, mass effect or hydrocephalus.
[2025-02-23 06:30] LABS: PROTHROMBIN TIME 10.3 SECONDS (9.0-12.0)
[2025-02-23 06:34] LABS: BASOPHILS % (AUTO) 0.2 % (0-1); EOSINOPHILS % (AUTO) 10.1 % (0-6); HEMATOCRIT 37.2 % (35.0-45.0); HEMOGLOBIN 12.7 g/dl (12.0-16.0); LYMPHOCYTES # (AUTO) 1.9 X10'3 (1.1-4.8); LYMPHOCYTES % (AUTO) 19.9 % (21-51); MEAN CORPUSCULAR HEMOGLOBIN 28.2 PG (27.0-31.0); MEAN CORPUSCULAR HGB CONC 34.2 g/dL (33.0-36.5); MEAN CORPUSCULAR VOLUME 82.6 FL (78-98); MEAN PLATELET VOLUME 9.7 FL (7.4-10.4); MONOCYTES # (AUTO) 0.4 X10'3 (0-0.9); MONOCYTES % (AUTO) 4.4 % (2-12); NEUTROPHILS # (AUTO) 6.2 X10'3 (1.8-7.7); NEUTROPHILS % (AUTO) 65.4 % (42-75); PLATELET COUNT 248 X10'3 (140-440); RED CELL DISTRIBUTION WIDTH 14.1 % (11.5-14.5); WHITE BLOOD COUNT 9.6 X10'3 (4.5-11.0)
[2025-02-23 07:08] LABS: ALANINE AMINOTRANSFERASE 195 U/L (12-78); ALBUMIN/GLOBULIN RATIO 0.9 (1.1-1.5); ALKALINE PHOSPHATASE 244 IU/L (46-116); ANION GAP 12 (8-16); ASPARTATE AMINO TRANSFERASE 92 U/L (10-37); BILIRUBIN,TOTAL 0.5 MG/DL (0.1-1.0); BLOOD UREA NITROGEN 13 MG/DL (7-18); BUN/CREATININE RATIO 17.6 (10.0-20.0); CALCIUM 8.2 MG/DL (8.5-10.1); CHLORIDE 108 MMOL/L (99-107); CHOL/HDL RATIO 3.8 (0.00-4.99); CHOLESTEROL 170 MG/DL (0-200); CREATININE 0.74 MG/DL (0.40-0.90); GLUCOSE 77 MG/DL (70-104); HDL CHOLESTEROL 45 MG/DL (35-60); LDL CHOLESTEROL 100 MG/DL (50-100); MAGNESIUM 2.2 MG/DL (1.5-2.4); PHOSPHORUS 2.7 MG/DL (2.3-4.5); POTASSIUM 3.4 MMOL/L (3.5-5.1); SODIUM 143 MMOL/L (135-145); TOTAL CARBON DIOXIDE 22.8 MMOL/L (24-32); TOTAL PROTEIN 6.3 G/DL (6.4-8.2); TRIGLYCERIDES 119 MG/DL (20-135); eCRCL 74 ML/MIN; eGFR 86 ML/MIN
--- NOTE | 2025-02-23 07:51 | RADIOLOGY REPORT ---
EXAM: US Abdomen Limited, Right Upper Quadrant CLINICAL INDICATION: transaminitis TECHNIQUE: Real-time ultrasound of the right upper quadrant with image documentation. COMPARISON: None FINDINGS: LIVER: Liver measures up to 15.2 cm. No intrahepatic bile duct dilation. GALLBLADDER: Cholecystectomy. Negative Harrison's sign was reported by the machine egg washer. COMMON BILE DUCT: Unremarkable as visualized. No stones. No dilation. Common bile duct measures 0.46 cm in diameter. PANCREAS: Unremarkable as visualized. RIGHT KIDNEY: Unremarkable. No stones. No hydronephrosis. The right kidney measures 9.9 x 3.7 x 4.9 cm. SPLEEN: Spleen measures up to 11.7 cm. OTHER FINDINGS: . . The left kidney measures 9.4 x 4.2 x 5.2 cm. IMPRESSION: No acute findings in the right upper quadrant.
[2025-02-23] MEDS: pantoprazole 40mg Tablet.DR PO SCH (08:26)
[2025-02-23] MEDS: potassium Cl 20 mEq SR tablet PO PRN (08:26)
[2025-02-23] MEDS: duloxetine 30mg CAPSULE.DR PO SCH (08:27)
[2025-02-23] MEDS ORDERED: ASPI-1265 PO (12:11)
--- NOTE | 2025-02-23 21:11 | DISCHARGE SUMMARY-Residence ---
Discharge Summary Providers to CC Resident Creating Document: GAYLE PEREZ RES ~ Discharge Summary Admission Diagnosis: SINUS TACH, NUMBNESS AND TINGLING, RULE OUT TIA Hospital Course DATE OF ADMISSION: 02/22/2025 DATE OF DISCHARGE: 02/23/2025 Hospital course same as mentioned discharge summary. Discharge Diagnosis\Comment: TIA Ruled out acute CVA Transaminitis likely secondary to close medications a bone History of sinus tach being evaluated with Dr. Barraza Obesity Gastritis history of esophageal ulcer Operations\Procedures: None Consultants: Tele neuro Complications: None Condition on DC: Stable New Medications: Aspirin (Aspirin) 81 Mg Tab.chew 1 TAB PO DAILY, #30 TAB.CHEW Continued Medications: Duloxetine HCl (Duloxetine HCl) 60 Mg Capsule.dr 1 CAP PO QAM Famotidine (Pepcid) 20 Mg Tablet 1 TAB PO Q12H, #10 TAB 0 Refills Omeprazole (Prilosec) 40 Mg Capsule 1 CAP PO DAILY for 30 Days, #30 CAP Ondansetron Hcl (Zofran) 4 Mg Tablet 1 TAB PO Q8H for 10 Days, #20 TAB Discontinued Medications: Tirzepatide (Zepbound) 2.5 Mg/0.5 Ml Pen.injctr 2.5 MG SUBCUT Q7D Discharge Summary: As per HPI: 44-year-old female with history of fibromyalgia, sinus tachycardia, neuropathy, gastritis presented to the ED with chief complaints of numbness of the lips and tip of the tongue this morning which lasted for around 40 minutes. She currently does not have any numbness or tingling. Denies significant chest pains, diaphoresis, fevers/chills, nasal congestion, expectoration, palpitations. No prior episodes in the past. She has history of sinus tachycardia which is being evaluated by Dr. Dunlap her director of nursing, she had a heart monitor for three days six months ago uneventful. She was getting a stress test done but she could not completed. She has an appointment with Dr. Barraza next month. Denies smoking or drinking alcohol. No drug use, was given [place] shows when she was here in the ED couple of days ago and hence a UTox positive for opiates. Her liver enzymes are elevated. She is currently taking tries appetite for weight loss since the past four months, dose increased from 2.5252 days ago. She has history of chronic on and off headaches, recently intensity of her headaches has increased. She complains of weakness of bilateral lower extremities which is also chronic since 2021. Discussed advanced care directives and she wishes to be a full code. Hospital course: CT head was negative EKG shows sinus tach. Chest x-ray was clear. Was given IV fluid and was adequately resuscitated. Telemetry monitoring was done which did not show any arrhythmias. MRI head was done which was negative for any acute significant findings. Echo was done which showed preserved EF. She had transaminitis which was likely secondary to the recent use of the bone. Ultrasound abdomen did not show anything concerning for acute. CVA workup was negative. She is hemodynamically stable her hospital course is uncomplicated her physical exam is as follows. General: Awake and Alert, no acute distress. HEENT: Conjunctiva pink, Sclera clear, Mucus Membranes moist. Neck: Supple without masses and tenderness. Resp: Unlabored. Equal breath sounds bilaterally. Heart: Regular rhythm, normal S1 and S2, no rub, murmur or gallop. Abdomen: Soft and non tender no organomegaly. Normal bowel sounds x4 quadrant normoactive. No guarding or rigidity. Extremities: Normal ROM, no swelling, nontender. No cyanosis,clubbing or edema. MONUMENT SETTER: No gross motor or sensory abnormalities. Skin: Warm and Dry. Discharge medications can be found above. Laboratory Tests Test 02/22/25 10:35 02/22/25 12:00 02/22/25 15:10 02/22/25 17:30 White Blood Count 11.6 X10'3 Red Blood Count 5.23 X10'6 Hemoglobin 14.8 g/dl Hematocrit 43.6 % Mean Corpuscular Volume 83.4 FL Mean Corpuscular Hemoglobin 28.3 PG Mean Corpuscular Hemoglobin Concent 33.9 g/dL Red Cell Distribution Width 14.0 % Platelet Count 356 X10'3 Mean Platelet Volume 10.1 FL Neutrophils (%) (Auto) 74.2 % Lymphocytes (%) (Auto) 16.0 % Monocytes (%) (Auto) 3.4 % Eosinophils (%) (Auto) 6.3 % Basophils (%) (Auto) 0.1 % Neutrophils # (Auto) 8.6 X10'3 Lymphocytes # (Auto) 1.9 X10'3 Monocytes # (Auto) 0.4 X10'3 Eosinophils # (Auto) 0.7 X10'3 Basophils # (Auto) 0.0 X10'3 CBC Comment Sodium Level 142 MMOL/L Potassium Level 4.0 MMOL/L Chloride Level 105 MMOL/L Carbon Dioxide Level 24.0 MMOL/L Anion Gap 13 Blood Urea Nitrogen 14 MG/DL Creatinine 0.98 MG/DL Estimated GFR/1.73 m2 62 ML/MIN BUN/Creatinine Ratio 14.3 Glucose Level 102 MG/DL Hemoglobin A1c 5.2 % Calcium Level 8.9 MG/DL Magnesium Level 2.3 MG/DL Total Bilirubin 0.8 MG/DL Aspartate Amino Transf (AST/SGOT) 181 U/L Alanine Aminotransferase (ALT/SGPT) 333 U/L Alkaline Phosphatase 267 IU/L Total Creatine Kinase 84 U/L Total Protein 7.7 G/DL Albumin 3.8 G/DL Globulin 3.9 G/DL Albumin/Globulin Ratio 1.0 Procalcitonin 0.13 NG/ML Thyroid Stimulating Hormone (TSH) 1.92 ulU/ml Chemistry Comments Urine Specimen Description Non-specified Cln catch midstream Urine Color Yellow Yellow Urine Clarity Slightly cloudy Slightly cloudy Urine pH 6.0 6.0 Urine Specific [place] 1.025 1.020 Urine Protein Trace mg/dl Negative mg/dl Urine Glucose (UA) Negative mg/dl Negative mg/dl Urine Ketones 40 mg/dl >=80 mg/dl Urine Occult Blood Negative Negative Urine Nitrite Negative Negative Urine Bilirubin Small Negative Urine Urobilinogen 0.2 E.U/dL 0.2 E.U/dL Urine Leukocyte Esterase Negative Negative Urine RBC 0-2 /HPF 3-10 /HPF Urine WBC 0-4 /HPF 0-4 /HPF Urine Squamous Epithelial Cells Many /LPF Many /LPF Urine Bacteria 3+ /HPF 1+ /HPF Urine Mucus Few /LPF Urine Culture Indicated Not ind Not ind Volume Urine Centrifuged 10 ml 10 ml Urine Comment Urine Opiates Screen Positive Urine Methadone Screen Negative Urine Fentanyl Screen Negative Urine Barbiturates Screen Negative Urine Phencyclidine Screen Negative Urine Amphetamines Screen Negative Urine Benzodiazepines Screen Negative Urine Cocaine Screen Negative Urine Cannabinoids Screen Negative Drug Screen Comment Lactic Acid Level 1.2 MMOL/L Test 02/23/25 05:14 White Blood Count 9.6 X10'3 Red Blood Count 4.50 X10'6 Hemoglobin 12.7 g/dl Hematocrit 37.2 % Mean Corpuscular Volume 82.6 FL Mean Corpuscular Hemoglobin 28.2 PG Mean Corpuscular Hemoglobin Concent 34.2 g/dL Red Cell Distribution Width 14.1 % Platelet Count 248 X10'3 Mean Platelet Volume 9.7 FL Neutrophils (%) (Auto) 65.4 % Lymphocytes (%) (Auto) 19.9 % Monocytes (%) (Auto) 4.4 % Eosinophils (%) (Auto) 10.1 % Basophils (%) (Auto) 0.2 % Neutrophils # (Auto) 6.2 X10'3 Lymphocytes # (Auto) 1.9 X10'3 Monocytes # (Auto) 0.4 X10'3 Eosinophils # (Auto) 1.0 X10'3 Basophils # (Auto) 0.0 X10'3 CBC Comment Prothrombin Time 10.3 SECONDS INR International Normalized Ratio 1.0 INR Coagulation Comments Sodium Level 143 MMOL/L Potassium Level 3.4 MMOL/L Chloride Level 108 MMOL/L Carbon Dioxide Level 22.8 MMOL/L Anion Gap 12 Blood Urea Nitrogen 13 MG/DL Creatinine 0.74 MG/DL Estimated GFR/1.73 m2 86 ML/MIN BUN/Creatinine Ratio 17.6 Glucose Level 77 MG/DL Calcium Level 8.2 MG/DL Phosphorus Level 2.7 MG/DL Magnesium Level 2.2 MG/DL Total Bilirubin 0.5 MG/DL Aspartate Amino Transf (AST/SGOT) 92 U/L Alanine Aminotransferase (ALT/SGPT) 195 U/L Alkaline Phosphatase 244 IU/L Total Protein 6.3 G/DL Albumin 3.0 G/DL Globulin 3.3 G/DL Albumin/Globulin Ratio 0.9 Triglycerides Level 119 MG/DL Cholesterol Level 170 MG/DL LDL Cholesterol 100 MG/DL HDL Cholesterol 45 MG/DL Cholesterol/HDL Ratio 3.8 Chemistry Comments *Problems/Diagnosis: (1) TIA (transient ischemic attack) Status: Acute Total Time Spent on D/C: > 30 Minutes Addendum in the view of abnormal liver enzymes of unclear etiol, advised pt to sort that out before starting statins Date of Service: Feb 23, 2025 Billing Provider: JESSENIA YAO MD Common Visit Codes: 86094-SCU/OBS DISCH DAY >30min GAYLE PEREZ RES Feb 23, 2025 21:11 JESSENIA YAO MD Feb 24, 2025 06:53
--- NOTE | 2025-02-24 17:15 | CARDIOLOGY REPORT ---
APPROVED REPORT EXAM: Comprehensive 2D, Doppler, and color-flow Echocardiogram with saline. Patient Location: ER RM 13 Blood Pressure: 161/96 mmHg Heart Rate: 83 bpm Indications CVA/TIA Hypertension METAL BENCH PATTERNMAKER: Delilah Barraza MD NO Previous ECHO 2D Dimensions LA Diam3.1 cm IVSd 1.1 (0.7-1.1cm) LVDd 3.9 cm PWd 1.1 (0.7-1.1cm) IVSs 1.9 (0.8-1.2cm) LVDs 2.5 (2.5-4.0cm) PWs 1.3 (0.8-1.2cm) LVOT Diameter 1.86 (1.8-2.4cm) LVEF(%) 66.5 (>50%) Ao Asc Diam.2.88 cm IVC 11.67 mmFS (%) 36.2 % SV 43.2 ml CO 3.5 L/min M-Mode Dimensions Left Atrium(MM) 3.05 (2.5-4.0cm) Aortic Root 2.59 (2.2-3.7cm) MV EPSS 0.5 (<0.5cm) Aortic Valve AoV Peak Willis. 173.6 cm/s AoV VTI 29.9 cm AO Peak GR. 12.0 mmHg AO Mean GR. 7 mmHg LVOT VTI 22.45 cm LVOT Peak Willis. 116.5 cm/s FERCHO(VTI)/BSA 2.03 cm2/m2 FERCHO (VTI) 2.03 cm2 Mitral Valve MV E Velocity 84.4 cm/s MV Peak Gr. 4 mmHg MV DECEL TIME 248 ms MV A Velocity 94.9 cm/s MV PHT 88 ms E/A Ratio 0.9 MVA (PHT) 2.50 cm2 MV VMax96.9 cm/s TDI Lateral E' P. V13.81 cm/s E/Lateral E' 6.1 Tricuspid Valve TR P. Velocity 173 cm/s RAP ESTIMATE 10 mmHg TR Peak Gr. 12 mmHg RVSP 22 mmHg LEFT VENTRICLE Normal LV size and wall thickness. Overall systolic function is normal. LVEF is 65-70%. RIGHT VENTRICLE RV is normal size and function. ATRIA The left atrium size is normal. Saline study was performed with 2 IV injections of 10 ccs of agitate d normal saline at rest, with cough, and with valsalva. Negative saline study for right to left flow. AORTIC VALVE Trileaflet AV appears mildly sclerotic without stenosis. No insufficiency. MITRAL VALVE Mild mitral annular calcification without stenosis. Trace regurgitation. TRICUSPID VALVE The tricuspid valve is normal in structure with trace regurgitation PULMONIC VALVE Pulmonic valve is grossly normal in structure without insufficiency. GREAT VESSELS The aortic root is normal in size. The ascending aorta is normal in size. The IVC is normal in size a nd collapses >50% with inspiration. PERICARDIUM Normal pericardium. No effusion. Other Information Study Quality: Adequate Conclusion Normal LV size and wall thickness. Overall systolic function is normal. LVEF is 65-70%. RV is normal size and function. The left atrium size is normal. Trileaflet AV appears mildly sclerotic without stenosis. No insufficiency. Mild mitral annular calcification without stenosis. Trace regurgitation. The tricuspid valve is normal in structure with trace regurgitation Pulmonic valve is grossly normal in structure without insufficiency. Normal pericardium. No effusion.
[2025-02-26 05:19] LABS: HBSAG SCREEN Negative (Negative); HEP B CORE AB, IGM Negative (Negative); HEPATITIS C VIRUS ANTIBODY Non Reactive (Non Reactive)
== END 2025-02-23 13:45 | disposition home or self-care (01) | DRG 47 ==
LOC: ER 10:24 → ED HOLD 15:36 → ORTHO 4S 23:56
PROVIDERS: ADMIT Internal Medicine; ATTEND Internal Medicine
DX: G45.9 Transient cerebral ischemic attack, unspecified (principal); E66.9 Obesity, unspecified; M79.7 Fibromyalgia; F32.A Depression, unspecified; F41.9 Anxiety disorder, unspecified; G62.9 Polyneuropathy, unspecified; G89.29 Other chronic pain; K21.9 Gastro-esophageal reflux disease without esophagitis; M54.9 Dorsalgia, unspecified; K58.9 Irritable bowel syndrome, unspecified; T50.996A Underdosing of other drugs, medicaments and biological substances, initial encounter; R74.01 Elevation of levels of liver transaminase levels; Z90.49 Acquired absence of other specified parts of digestive tract; Z68.33 Body mass index [BMI] 33.0-33.9, adult; Z98.891 History of uterine scar from previous surgery; Z86.73 Personal history of transient ischemic attack (TIA), and cerebral infarction without residual deficits; Z87.11 Personal history of peptic ulcer disease; Z87.442 Personal history of urinary calculi; Y92.89 Other specified places as the place of occurrence of the external cause
CPT/HCPCS: 36415; 70450; 70551; 71045; 76700; 80053; 80061; 80305; 81001; 82550; 83036; 83605; 83735; 84100; 84145; 84443; 85025; 85610; 86705; 86803; 87081; 87340; 87522; 93005; 93306; 96361; 96374; 99285; G0378; J1650; J2060; J7030; J7040

== ENCOUNTER 2025-02-24 21:35 | Emergency (ER) | payer MEDICAID ==
[~2025-02-24] VITALS: Ht 154.9 cm; Wt 80.1 kg
[~2025-02-24 21:35] MED LIST changes: +ASPI-1265 PO; -CITA-178 PO; +DULO60CA65 PO; -NAPR-56 PO; +OMEP40CA21 PO
[2025-02-24 21:37] VITALS: BP 156/84; PULSE 122; RESP 16; TEMP 100; O2SAT 97
--- NOTE | 2025-02-24 21:59 | ELECTROCARDIOGRAPH REPORT ---
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
[2025-02-24] MEDS ORDERED: iohexol 300mg/ml 100ml inj. ONE (22:06)
[2025-02-24 22:08] LABS: BASOPHILS # (AUTO) 0.1 X10'3 (0-0.2); BASOPHILS % (AUTO) 0.3 % (0-1); EOSINOPHILS # (AUTO) 1.5 X10'3 (0-0.9); EOSINOPHILS % (AUTO) 9.2 % (0-6); HEMATOCRIT 45.7 % (35.0-45.0); HEMOGLOBIN 15.3 g/dl (12.0-16.0); LYMPHOCYTES # (AUTO) 2.4 X10'3 (1.1-4.8); MEAN CORPUSCULAR HEMOGLOBIN 27.9 PG (27.0-31.0); MEAN CORPUSCULAR HGB CONC 33.4 g/dL (33.0-36.5); MEAN CORPUSCULAR VOLUME 83.4 FL (78-98); MEAN PLATELET VOLUME 9.2 FL (7.4-10.4); MONOCYTES # (AUTO) 0.7 X10'3 (0-0.9); MONOCYTES % (AUTO) 4.1 % (2-12); NEUTROPHILS # (AUTO) 11.6 X10'3 (1.8-7.7); NEUTROPHILS % (AUTO) 71.4 % (42-75); PLATELET COUNT 353 X10'3 (140-440); RED BLOOD COUNT 5.47 X10'6 (4.20-5.60); RED CELL DISTRIBUTION WIDTH 14.2 % (11.5-14.5); WHITE BLOOD COUNT 16.3 X10'3 (4.5-11.0)
--- NOTE | 2025-02-24 22:24 | Physician Documentation ---
History of Present Illness Chief Complaint: Abdominal Pain Stated Complaint: STROKE LIKE SYMPTOMS OK to notify your PCP?: Yes Primary Medical Doctor: Roque arambula Source: patient Mode of Arrival: POV Exam Limitations: no limitations HPI 44-year-old female presents with upper quadrant abdominal pain since 7:00 p.m. today with bouts of dizziness and emesis. She states she was here 2 days ago for a TIA and was discharged today from our hospital. Blood glucose was normal in triage at 1:23 a.m.. NIH 0. She mentions that she had elevated liver enzymes while she was here in the hospital and is wondering if it may be that. Medication Reconciliation Allergies: Coded Allergies: aspirin (Unverified Adverse Reaction, Unknown, 02/20/25) HX LANDON SYNDROME PER PT, HAS TAKEN IT WITHOUT PROBLEMS Scheduled Aspirin (Aspirin), 1 TAB PO DAILY Duloxetine HCl (Duloxetine HCl), 1 CAP PO QAM, (Reported) Famotidine (Pepcid), 1 TAB PO Q12H Omeprazole (Prilosec), 1 CAP PO DAILY, (Reported) Ondansetron Hcl (Zofran), 1 TAB PO Q8H Discontinued Medications Citalopram Hydrobromide* (Celexa*), 20 MG PO DAILY, (Reported) Discontinued Reason: completed med therapy Naproxen (Naproxen), 500 MG PO Q12H Discontinued Reason: patient no longer taking Tirzepatide (Zepbound), 2.5 MG SUBCUT Q7D, (Reported) Past Medical History Past Medical History: Peripheral Neuropathy, Arrhythmia, GERD, Peptic Ulcer Disease, Kidney Stones, Chronic Back Pain, Anxiety, Depression Past Surgical History: , tonsillectomy, tubal ligation Alcohol Use: None Drug Use: none Lives with: Spouse Lives In: Home Occupation: employed Review of Systems All Other Systems at this time: Reviewed and Negative Physical Exam Vital Signs: RN Vital Signs have been reviewed: Yes, Temperature: 100.0, Source: Oral, Heart Rate: 122, Respiratory Rate: 16, BP: 156/84, Pulse Oximetry: 97, Weight: 80.100 Oxygen Flow Rate: 0 Pulse Oximetry Reflects: adequate oxygenation Physical Exam General: Alert, no distress. HEENT: No injection, moist mucous membranes. Neck: Full range of motion. Respiratory: No respiratory distress, equal chest rise and fall. Chest: No accessory muscle use. Cardiovascular: Regular rate and rhythm. Gastrointestinal: Nondistended. Tenderness to palpation of left and right upper quadrant. Bowel sounds normal. Extremities: Normal range of motion, no deformity. Neurologic: Oriented x4. Psychiatric: Normal mood and affect. Skin: Normal color, warm and dry. Progress Results/Orders Results/Orders Vital Signs 02/24/25 21:37 Temp 100.0 Pulse 122 Resp 16 B/P (MAP) 156/84 Pulse Ox 97 O2 Flow Rate 0 Laboratory Tests Test 02/24/25 21:39 02/24/25 21:54 Glucometer 123 H White Blood Count 16.3 H Red Blood Count 5.47 Hemoglobin 15.3 Hematocrit 45.7 H Mean Corpuscular Volume 83.4 Mean Corpuscular Hemoglobin 27.9 Mean Corpuscular Hemoglobin Concent 33.4 Red Cell Distribution Width 14.2 Platelet Count 353 Mean Platelet Volume 9.2 Neutrophils (%) (Auto) 71.4 Lymphocytes (%) (Auto) 15.0 L Monocytes (%) (Auto) 4.1 Eosinophils (%) (Auto) 9.2 H Basophils (%) (Auto) 0.3 Neutrophils # (Auto) 11.6 H Lymphocytes # (Auto) 2.4 Monocytes # (Auto) 0.7 Eosinophils # (Auto) 1.5 H Basophils # (Auto) 0.1 CBC Comment Chemistry Comments Departure Referrals: NO PRIMARY CARE PROVIDER (PCP) Additional Comment Medical Screen Exam This patient recieved a medical screening examination. After reviewing the individual's medical complaints with presenting symptoms and performing an appropriate physical examination, it was determined that no immediate life- threatening emergency medical condition is present. This individual is also not a women having contractions. ISMAEL LOMBARDI [facility] Feb 24, 2025 22:24
[2025-02-24 22:30] LABS: ALBUMIN 3.9 G/DL (3.4-5.0); ANION GAP 13 (8-16); BLOOD UREA NITROGEN 18 MG/DL (7-18); BUN/CREATININE RATIO 17.5 (10.0-20.0); CALCIUM 9.5 MG/DL (8.5-10.1); CHLORIDE 108 MMOL/L (99-107); CREATININE 1.03 MG/DL (0.40-0.90); GLUCOSE 125 MG/DL (70-104); POTASSIUM 3.4 MMOL/L (3.5-5.1); PRO BRAIN NATRIURETIC PEPTIDE < 30 PG/ML (0-125); SODIUM 142 MMOL/L (135-145); TOTAL CARBON DIOXIDE 21.1 MMOL/L (24-32); eCRCL 53 ML/MIN; eGFR 58 ML/MIN
[2025-02-24 23:03] LABS: ALANINE AMINOTRANSFERASE 151 U/L (12-78); ALKALINE PHOSPHATASE 294 IU/L (46-116); ASPARTATE AMINO TRANSFERASE 32 U/L (10-37); BILIRUBIN,TOTAL 0.4 MG/DL (0.1-1.0); LIPASE 27 U/L (16-77)
[2025-02-25] MEDS ORDERED: AMOX-117 PO (16:41)
== END 2025-02-25 01:19 | disposition left against medical advice (07) ==
LOC: ER 21:36
DX: R10.11 Right upper quadrant pain (principal); R10.12 Left upper quadrant pain; R42 Dizziness and giddiness; R11.10 Vomiting, unspecified; F32.A Depression, unspecified; F41.9 Anxiety disorder, unspecified; R06.02 Shortness of breath; K21.9 Gastro-esophageal reflux disease without esophagitis; Z86.73 Personal history of transient ischemic attack (TIA), and cerebral infarction without residual deficits; Z88.6 Allergy status to analgesic agent; Z90.89 Acquired absence of other organs; Z98.51 Tubal ligation status; Z87.440 Personal history of urinary (tract) infections; Z79.82 Long term (current) use of aspirin
CPT/HCPCS: 36415; 80053; 82948; 83690; 83880; 84484; 85025; 93005; 99284; Q9967

== ENCOUNTER 2025-02-25 10:22 | Emergency (ER) | payer MEDICAID ==
[~2025-02-25] VITALS: Ht 154.9 cm; Wt 79.8 kg
[2025-02-25 11:14] LABS: BASOPHILS # (AUTO) 0.1 X10'3 (0-0.2); BASOPHILS % (AUTO) 0.3 % (0-1); EOSINOPHILS % (AUTO) 12.5 % (0-6); HEMATOCRIT 44.6 % (35.0-45.0); HEMOGLOBIN 15.1 g/dl (12.0-16.0); LYMPHOCYTES # (AUTO) 2.5 X10'3 (1.1-4.8); LYMPHOCYTES % (AUTO) 15.7 % (21-51); MEAN CORPUSCULAR HGB CONC 33.8 g/dL (33.0-36.5); MEAN CORPUSCULAR VOLUME 82.8 FL (78-98); MEAN PLATELET VOLUME 9.3 FL (7.4-10.4); MONOCYTES # (AUTO) 0.6 X10'3 (0-0.9); MONOCYTES % (AUTO) 3.5 % (2-12); PLATELET COUNT 352 X10'3 (140-440); RED BLOOD COUNT 5.39 X10'6 (4.20-5.60); RED CELL DISTRIBUTION WIDTH 14.4 % (11.5-14.5); WHITE BLOOD COUNT 16.1 X10'3 (4.5-11.0)
[2025-02-25 11:41] LABS: ALANINE AMINOTRANSFERASE 127 U/L (12-78); ALBUMIN 3.9 G/DL (3.4-5.0); ALKALINE PHOSPHATASE 279 IU/L (46-116); ANION GAP 13 (8-16); ASPARTATE AMINO TRANSFERASE 25 U/L (10-37); BILIRUBIN,TOTAL 0.6 MG/DL (0.1-1.0); BLOOD UREA NITROGEN 15 MG/DL (7-18); BUN/CREATININE RATIO 17.2 (10.0-20.0); CALCIUM 9.4 MG/DL (8.5-10.1); CHLORIDE 106 MMOL/L (99-107); CREATININE 0.87 MG/DL (0.40-0.90); GLUCOSE 115 MG/DL (70-104); POTASSIUM 3.8 MMOL/L (3.5-5.1); SODIUM 142 MMOL/L (135-145); TOTAL CARBON DIOXIDE 22.9 MMOL/L (24-32); TOTAL PROTEIN 7.9 G/DL (6.4-8.2); eCRCL 63 ML/MIN; eGFR 71 ML/MIN
[2025-02-25 11:43] LABS: AMYLASE 22 U/L (25-115); LIPASE 21 U/L (16-77)
[2025-02-25] MEDS ORDERED: iohexol 300mg/ml 100ml inj. ONE (11:50)
[2025-02-25 12:33] LABS: BILIRUBIN,URINE SMALL (Neg); CLARITY,URINE SLIGHTLY CLOUDY (Clear); COLOR,URINE YELLOW (Yellow); GLUCOSE, URINE NEGATIVE (Neg); KETONES,URINE 40 mg/dl (Neg); LEUKOCYTE ESTERASE ,URINE NEGATIVE (Neg); NITRITES, URINE NEGATIVE (Neg); OCCULT BLOOD,URINE NEGATIVE (Neg); PROTEIN,URINE TRACE mg/dl (Neg); UROBILINOGEN,URINE 0.2 E.U/dL (0.2-1.0)
[2025-02-25 12:34] LABS: URINE HCG NEGATIVE (NEG)
[2025-02-25 12:36] LABS: UA COLLECTION TYPE CLN CATCH MIDSTREAM
[2025-02-25 12:38] LABS: BACTERIA,URINE 3+ /HPF (Neg); CAL OXALATE CRYSTALS 2+ /HPF (NEGATIVE); RBC,URINE NONE SEEN /HPF (0-2); SQUAMOUS EPITHELIAL CELL,UR MANY /LPF (FEW); WBC,URINE 0-4 /HPF (0-4)
--- NOTE | 2025-02-25 13:04 | Physician Documentation ---
History of Present Illness ~ General Chief Complaint: Abnormal Lab(s) Stated Complaint: ELEVATED WHITE BLOOD COUNT Time Seen by MD: 10:43 Primary Medical Doctor: Roque Whitley Source: patient Mode of Arrival: POV History of Present Illness Initial Comments 44-year-old female history of IBS presenting for abdominal pain. She reports chronic history of upper abdominal pain related to her IBS. Today she has a new discomfort in her suprapubic region. No dysuria. Bowel movements are normal. No nausea or vomiting Medication Reconciliation Allergies: Coded Allergies: No Known Allergies (Unverified , 02/25/25) Scheduled Aspirin (Aspirin), 1 TAB PO DAILY Duloxetine HCl (Duloxetine HCl), 1 CAP PO QAM, (Reported) Famotidine (Pepcid), 1 TAB PO Q12H Omeprazole (Prilosec), 1 CAP PO DAILY, (Reported) Ondansetron Hcl (Zofran), 1 TAB PO Q8H Discontinued Medications Citalopram Hydrobromide* (Celexa*), 20 MG PO DAILY, (Reported) Discontinued Reason: completed med therapy Naproxen (Naproxen), 500 MG PO Q12H Discontinued Reason: patient no longer taking Tirzepatide (Zepbound), 2.5 MG SUBCUT Q7D, (Reported) Past Medical History Past Medical History: Peripheral Neuropathy, Arrhythmia, GERD, Peptic Ulcer Disease, Kidney Stones, Chronic Back Pain, Anxiety, Depression Past Surgical History: , tonsillectomy, tubal ligation Alcohol Use: None Drug Use: none Lives with: Spouse Lives In: Home Occupation: employed Review of Systems Constitutional: Denies: fever Physical Exam Physical Exam Vital Signs: Temperature: 97.3, Source: Oral, Heart Rate: 82, Respiratory Rate: 15, BP: 128/88, Pulse Oximetry: 99, Weight: 79.800 Oxygen Flow Rate: 0 Physical Exam Well-appearing no distress resting comfortably in bed No JVD Moist mucous membranes Cardiac no murmur Abdomen is nondistended mild left lower quadrant tenderness no guarding no rebound Lower extremity no edema Awake alert oriented Progress Progress Note Labs independently interpreted show mild leukocytosis improved from prior Results/Orders Reviewed/noted all lab results: Yes Results/Orders Orders - PALMIRA MASON MD Ct Abdomen Pelvis (02/25/25 12:03) Ceftriaxone 2gm/D5w 50ml Bag (Rocephin 2 (02/25/25 16:30) Metronidazole-Flagyl 500mg/Ns (Flagyl 50 (02/25/25 16:29) Completed Orders - PALMIRA MASON MD Ct Abdomen Pelvis (02/25/25 12:03) Hcg, Ur Ql (02/25/25 11:32) Iohexol 300mg/Ml 100ml Inj. (Omnipaque-3 (02/25/25 11:50) Vital Signs 02/25/25 02/25/25 02/25/25 02/25/25 10:26 12:11 12:11 13:24 Temp 97.3 97.3 Pulse 105 82 77 Resp 18 15 15 18 B/P (MAP) 140/96 128/88 (101) 145/101 (116) Pulse Ox 98 99 97 O2 Flow Rate 0 0 02/25/25 15:52 Temp 97.3 Pulse 95 Resp 16 B/P (MAP) 115/82 (93) Pulse Ox 98 O2 Flow Rate 0 Laboratory Tests Test 02/25/25 10:52 02/25/25 10:54 White Blood Count 16.1 H Red Blood Count 5.39 Hemoglobin 15.1 Hematocrit 44.6 Mean Corpuscular Volume 82.8 Mean Corpuscular Hemoglobin 28.0 Mean Corpuscular Hemoglobin Concent 33.8 Red Cell Distribution Width 14.4 Platelet Count 352 Mean Platelet Volume 9.3 Neutrophils (%) (Auto) 68.0 Lymphocytes (%) (Auto) 15.7 L Monocytes (%) (Auto) 3.5 Eosinophils (%) (Auto) 12.5 H Basophils (%) (Auto) 0.3 Neutrophils # (Auto) 11.0 H Lymphocytes # (Auto) 2.5 Monocytes # (Auto) 0.6 Eosinophils # (Auto) 2.0 H Basophils # (Auto) 0.1 CBC Comment Sodium Level 142 Potassium Level 3.8 Chloride Level 106 Carbon Dioxide Level 22.9 L Anion Gap 13 Blood Urea Nitrogen 15 Creatinine 0.87 Estimated GFR/1.73 m2 71 BUN/Creatinine Ratio 17.2 Glucose Level 115 H Calcium Level 9.4 Total Bilirubin 0.6 Aspartate Amino Transf (AST/SGOT) 25 Alanine Aminotransferase (ALT/SGPT) 127 H Alkaline Phosphatase 279 H Total Protein 7.9 Albumin 3.9 Globulin 4.0 Albumin/Globulin Ratio 1.0 L Amylase Level 22 L Lipase 21 Chemistry Comments Urine Specimen Description Cln catch midstream Urine Color Yellow Urine Clarity Slightly cloudy Urine pH 6.0 Urine Specific Pablo 1.025 Urine Protein Trace Urine Glucose (UA) Negative Urine Ketones 40 H Urine Occult Blood Negative Urine Nitrite Negative Urine Bilirubin Small Urine Urobilinogen 0.2 Urine Leukocyte Esterase Negative Urine RBC None seen Urine WBC 0-4 Urine Squamous Epithelial Cells Many Urine Calcium Oxalate Crystals 2+ Urine Bacteria 3+ Urine Culture Indicated Not ind Volume Urine Centrifuged 10 ml Urine HCG, Qualitative Negative Urine Comment EKG/XRAY/CT/US/VASC/MRI CT : Impression CT abdomen and pelvis independently interpreted by myself shows no perforation or free fluid Departure Disposition: HOME / SELF CARE / HOMELESS Impression: Primary Impression: Enteritis Additional Instructions: Your CT scan showed some inflammation of the colon. This should improve with oral antibiotics. Start taking your antibiotics 1st thing tomorrow morning. Please checking with the your primary care physician within the next few weeks for reassessment and return to the emergency department if your symptoms worsen or if you develop fever Referrals: NO PRIMARY CARE PROVIDER (PCP) Prescriptions Amox Tr/Potassium Clavulanate (Augmentin 875-125 Tablet) 1 Each Tablet 1 TAB PO Q12H for 5 Days, #10 TAB Prov: PALMIRA MASON MD 02/25/25 Signature Scribe Signature: jose eduardo Attestation: PALMIRA Estrada MD Feb 25, 2025 13:04
--- NOTE | 2025-02-25 15:27 | RADIOLOGY REPORT ---
Indication: abdominal pain Technique: CT axial images of the abdomen and pelvis are obtained with intravenous contrast. Coronal and sagittal reformats were obtained. Radiation Dose Information: CTDI volume is 18.1 mGy. Dose-length product is 997 mGy*cm Comparison: None FINDINGS: Lung bases demonstrate atelectasis. Adrenal glands, spleen, pancreas unremarkable. Cholecystectomy. Dilated common bile duct which measu res 12 mm. Mild dilatation of intrahepatic ducts up to 5 mm. No enhancing hepatic lesion. Kidneys demonstrate no hydronephrosis. Stomach is partially distended. Small bowel loops demonstrate moderate distention. Moderate volume stool in the colon. No secondary signs for appendicitis present. Abdominal aorta normal in caliber. No retroperitoneal lymphadenopathy. Bladder is nondistended. No free pelvic fluid. No inguinal lymphadenopathy. Left ovarian cyst/ corpus luteum cyst measuring up to 1.8 cm Mesenteric haziness and stranding with subcentimeter mesenteric lymph nodes. IMPRESSION: 1. Mesenteric haziness and stranding with subcentimeter mesenteric lymph nodes which can be seen with sclerosing mesenteritis/ mesenteric panniculitis, infectious, inflammatory, neoplastic etiologies. 2. Moderate distention small bowel loops and mucosal hyperemia may represent enteritis. 3. Cholecystectomy. Dilated common bile duct intrahepatic ducts which can be seen with reservoir eff ect. Correlate clinically to exclude obstructing biliary /ampullary/pancreatic etiology. 4. Ovarian cyst/corpus luteal cyst measuring up to 1.8 cm. 5. Other findings as described.
[2025-02-25] MEDS ORDERED: AMOX-117 PO (16:41)
[2025-02-25] MEDS: CefTRIAXone 2gm/D5W 50ml BAG 50 ML IV ONE (16:49)
[2025-02-25] MEDS: metroNIDAZOLE-Flagyl 500mg/NS 100 ML IV STA (17:03)
[2025-02-25] MEDS: ketorolac trometh 15mg/ml vial 15 MG/ML ML IV ONE (18:03)
[2025-02-25 18:04] VITALS: BP 117/61; PULSE 85; RESP 16; TEMP 97.3; O2SAT 99
== END 2025-02-25 18:06 | disposition home or self-care (01) ==
LOC: ER 10:23
DX: K52.9 Noninfective gastroenteritis and colitis, unspecified (principal); K21.9 Gastro-esophageal reflux disease without esophagitis; F41.9 Anxiety disorder, unspecified; F32.A Depression, unspecified; G62.9 Polyneuropathy, unspecified; Z98.890 Other specified postprocedural states; Z87.442 Personal history of urinary calculi; Z79.899 Other long term (current) drug therapy; Z98.51 Tubal ligation status
CPT/HCPCS: 36415; 80053; 81001; 81025; 82150; 83690; 85025; 96365; 96368; 96375; 99285; J0696; J1885; J3490; Q9967